=== PATIENT | female | born 1990 | race Caucasian/White ===

== ENCOUNTER → 2018-02-14 16:07 | Outpatient (CLI) | payer MEDICAID, SELFPAY ==
[2018-02-22 11:25] LABS: HPV APTIMA, High Risk Positive (Negative)
[2018-02-22 11:51] LABS: HPV Reflexed? YES, CHARGE PATIENT
== END ==
PROVIDERS: Family Provider Internal Medicine; PCP Internal Medicine; Visit Provider Obstetrics & Gynecology
DX: Z12.4 Encounter for screening for malignant neoplasm of cervix (principal)
CPT/HCPCS: 87624; 88175; G0145

== ENCOUNTER → 2018-03-21 15:56 | Outpatient (CLI) | payer MEDICAID, SELFPAY ==
--- NOTE | 2018-03-21 | CER_PTH ---
PATIENT: XIOMY SOW LOC: [facility] U#:[id number] AGE/SX: 35/F ROOM: RE03/21/[address]: Dr. Cooper May MD : 1990 BED: DIS: SPEC #: [id number] RECD: 03/22/18 13:22 STATUS: JANICE SMALLStephanie #: [id number] SERGEI: 03/21/18 00:[address]: Cooper May DEPT: SURGICAL PATHOLOGY RECD BY: Damaso Bonilla Tissues: A - Uterine cervix, NOS B - Endocervical Procedures: Surgery Specimen Level IV HEADER OPERATION: Colposcopy PRE-OP DIAGNOSIS: LGSIL R87.612 TISSUE SUBMITTED: A ? Cervical biopsy four quad, B - ECC MICROSCOPIC DIAGNOSIS A. Cervix, four-quadrant, biopsy: Minimal changes suspicious for HPV cytopathic effects. Moderate chronic inflammation and squamous metaplasia. See comment. B. ECC: Fragments of benign ecto- and endocervical epithelium, blood and mucous, negative for dysplasia. TIM:josselyn 03/26/18 COMMENT A. Results from immunohistochemistry ([id number]) for surrogate HPV marker (p16) will be reported separately. MICROSCOPIC DESCRIPTION Slides are reviewed. GROSS DESCRIPTION A - Received in fixative is one container labeled with the patient's name and designated cervical biopsy four quadrant. The specimen consists of multiple irregular fragments of light nunez soft tissue that in aggregate measure 1 x 1 x 0.2 cm. The specimen is totally submitted in one cassette. B - Received in fixative is one container labeled with the patient's name and designated ECC. The specimen consists of multiple fragments of hemorrhagic mucoid tissue that in aggregate measure 2 x 2 x 0.2 cm. The specimen is totally submitted in one cassette. / TIM:josselyn 03/22/18 TC:5 CPT: 66942 x2
--- NOTE | 2018-03-21 | IMM_PTH ---
PATIENT: XIOMY SOW LOC: [facility] U#:[id number] AGE/SX: 35/F ROOM: RE03/21/[address]: Dr. Cooper May MD : 1990 BED: DIS: SPEC #: [id number] RECD: 03/26/18 11:23 STATUS: JANICE CANDIDO #: [id number] SERGEI: 03/21/18 00:[address]: Cooper May DEPT: IMMUNOHISTOCHEMISTRY RECD BY: Lisa Ferrer Tissues: A - Uterine cervix, NOS Procedures: p16 (initial) KI-67 (add) PHYSICIAN & INSTITUTION [place] [id number] SPECIMEN INFORMATION: Tissue Source: A ? Cervical biopsy four quad Clinical Info: ALYSIA Specimen Number: [id number] CPT code: 49369, 46471 METHODOLOGY: Deparaffinized sections of prefer/formalin-fixed tissue or PAP/DQ stained slides are incubated with monoclonal/polyclonal antibodies/oligonucleotide probes. Localization is made via biotin free immunoperoxidase method. Appropriate controls are performed and reacted as expected. Results on target cell population are indicated in the following table: RESULTS: ANTIBODY / CLONE RESULT Block A P16 (E6H4) negative Ki-67 (30-9) negative These tests were developed and their performance characteristics determined by [facility]. They may not have been cleared or approved by the U.S. Food and Drug Administration. The FDA has determined that such clearance or approval is not necessary. INTERPRETATION: A. Cervix, four-quad biopsy: Focal minimal changes suspicious for HPV cytopathic effects. SJ:josselyn 03/27/18
== END ==
PROVIDERS: Visit Provider Obstetrics & Gynecology
DX: R87.612 Low grade squamous intraepithelial lesion on cytologic smear of cervix (LGSIL) (principal)
CPT/HCPCS: 88305; 88341; 88342

== ENCOUNTER → 2018-07-17 18:19 | Outpatient (CLI) | payer MEDICAID, SELFPAY | PROVIDERS: Family Provider Internal Medicine; PCP Internal Medicine; Visit Provider Obstetrics & Gynecology | DX: R30.0 Dysuria (principal); R39.15 Urgency of urination | CPT/HCPCS: 87086; 87088 ==

== ENCOUNTER 2018-07-30 20:10 | Emergency (ER) | payer MEDICAID, SELFPAY ==
[2018-07-30 20:11] VITALS: BP 115/69; PULSE 84; RESP 15; TEMP 36.7; O2SAT 98; BMI 33.3
--- NOTE | 2018-07-30 20:21 | EKG12_ITS ---
Test Reason : CP Blood Pressure : / mmHG Vent. Rate : 072 BPM Atrial Rate : 072 BPM P-R Int : 118 ms QRS Dur : 088 ms QT Int : 388 ms P-R-T Axes : 032 061 033 degrees QTc Int : 424 ms Normal sinus rhythm Normal ECG Confirmed by MICHAEL FOWLER MD ([id number]), newspaper editor managing GURVINDER RAMOS ([id number]) on 08/05/2018 3:35:23 PM Referred By: TREY Confirmed By:IMCHAEL FOWLER MD
--- NOTE | 2018-07-30 20:25 | RAD_ITS ---
STUDY: X-RAY CHEST REASON FOR EXAM: Female, 28 years old. Left-sided chest pain. TECHNIQUE: Portable frontal COMPARISON: June 29, 2017 FINDINGS: The lungs are clear and expanded. There is no demonstrated pleural abnormality. Normal size heart. Normal mediastinum and hang. Normal visualized pulmonary arteries. Normal visualized aortic arch and descending thoracic aorta. Normal visualized thoracic spine. Normal visualized ribs, clavicles, and shoulders. There is no demonstrated abnormality of the visualized soft tissue structures of the upper abdomen. RAD/Chest 1 View (Portable) IMPRESSION: No acute cardiopulmonary process. Electronically Signed: Vicenta Rojas MD at 20:36 EDT Tel , Service support ,
[2018-07-30 20:30] VITALS: O2SAT 99
[2018-07-30 20:37] LABS: Absolute Lymphocyte Count 2.53 X10^3/ul (0.83-4.51); Absolute Neutrophil Count 6.3 X10^3/uL (2.0-7.7); Basophil# 0.03 X10^3/uL; Basophil% 0.3 % (0-1); Eosinophil# 0.15 X10^3/uL; Eosinophils% 1.5 % (0-5); Hematocrit 36.9 % (37-47); Lymphocyte # 2.53 X10^3/ul (4.0); Mean Corp Hgb Conc 32.5 g/gl (32-36); Mean Corpuscular Hgb 28.8 pg (27.0-32.0); Mean Corpuscular Volume 88.5 fL (81-99); Monocyte# 0.68 X10^3/uL; Neutrophil # 6.34 X10^3/uL (2.7-7.7); Neutrophil % 65.1 % (47-70); Platelet Count 279 K/mm3 (150-450); RBC Distribution Width CV 13.1 % (11.6-14.6); RBC Distribution Width SD 42.1 fl (35.1-43.9); Red Blood Count 4.17 M/mm3 (4.2-5.4); White Blood Count 9.7 K/mm3 (4.4-11.0)
[2018-07-30 20:40] LABS: POSITIVE COUNT NO; POSITIVE DIFFERENTIAL NO; POSITIVE MORPHOLOGY NO
[2018-07-30] MEDS: Ketorolac 30 MG/ML Syringe IV (20:53)
[2018-07-30 20:57] LABS: Anion Gap 8 (5-15); BUN 14 mg/dL (7-18); BUN/Creat Ratio 17.9 RATIO (10-20); Calcium,Total 9.1 mg/dL (8.5-10.1); Chloride 105 mmol/L (98-107); Creatinine, Serum 0.78 mg/dL (0.55-1.02); EST Glomerular Filtration Rate 93 mL/min (>60); Est Glom Filt Rate - Afr Amer 112 mL/min (>60); Estimated Creatinine Clearance 84.17 ml/min; Glucose 85 mg/dL (74-106); Potassium 3.6 mmol/L (3.5-5.1); Sodium Level 140 mmol/L (136-145)
[2018-07-30 21:20] VITALS: BP 111/69; PULSE 75; RESP 18; O2SAT 98
--- NOTE | 2018-07-30 21:55 | ED.VISSUMM ---
- ER Visit Summary Date of Service: 07/30/18 Chief Complaint: Back and chest pain History of Present Illness: The patient is a 28 F presents with back and chest pain started 2 hours after picking up her son. States mild symptoms progressed. Pain with palpation and deep breaths. No cough. No numbness in the arms. No recent travel, surgery, or immobilizations. No history of PE or DVT. History of gestational diabetes. No tobacco history. She is on iron for anemia. No further complaints. Physical Examination: General: Alert and oriented ?3, no acute distress HEENT: Normocephalic, atraumatic. Moist mucosa membranes Neck: supple, nontender. Cardiovascular: Regular rate and rhythm, no murmurs. Reproducible chest wall tenderness anterior and parathoracic. Respiratory: Normal breath sounds, symmetric, no distress Abdomen: Soft, nontender, nondistended Extremities: Nontender, no edema, pulses intact ?4 Neuro: no focal neurological deficits. Test Results: EKG sinus rate of 72, no ST or T wave changes. Troponin negative. CBC BMP normal. Chest x-ray negative. Emergency Department Course and Treatment: Patient exam concerns for muscle skeletal costochondritis. Nursing protocol obtain EKG and labs which all are normal. She is given Toradol IV. Reevaluation improving symptoms. Should continue on Motrin for symptoms. She will follow-up with PCP. All questions answered. Treatment Plan: [] Disposition: Discharge Impression: 1. Costochondritis 2. Thoracic muscle strain This note was generated with [employer] dictation software. It may contain incorrect words, spelling, and punctuation that were not noted in review of the chart prior to signing ED Disposition - Plan for ED Patient: Disposition: Home or Assisted Living Chief Complaint: Chest Pain Diagnosis: Costochondritis, Strain of muscle and tendon of back wall of thorax, initial encounter Instructions: ED Chest Pain Costochondritis Prescriptions: Ibuprofen 600 mg PO 4X/DAY PRN #20 tablet PRN Reason: Pain Referrals: Rodney Navarro Jr., MD [Primary Care Provider] - 3-5 Days
[2018-07-30 22:03] VITALS: BP 116/66; PULSE 79; RESP 16; O2SAT 98
== END 2018-07-30 22:04 | disposition home or self-care (01) ==
PROVIDERS: Emergency Provider Emergency Medicine; Family Provider Internal Medicine; PCP Internal Medicine
DX: M94.0 Chondrocostal junction syndrome [Tietze] (principal); S29.012A Strain of muscle and tendon of back wall of thorax, initial encounter; X50.9XXA Other and unspecified overexertion or strenuous movements or postures, initial encounter; Y93.9 Activity, unspecified; Y92.89 Other specified places as the place of occurrence of the external cause; Y99.9 Unspecified external cause status; Z86.32 Personal history of gestational diabetes
CPT/HCPCS: 71045; 80048; 84484; 85025; 93005; 99285; A4216

== ENCOUNTER → 2018-08-02 16:38 | Outpatient (CLI) | payer MEDICAID, SELFPAY | PROVIDERS: Visit Provider Physician Assistant Surgical | DX: J02.9 Acute pharyngitis, unspecified (principal) | CPT/HCPCS: 87081 ==

== ENCOUNTER 2018-09-27 16:20 | Emergency (ER) | payer MEDICAID, SELFPAY ==
[2018-09-27 16:20] VITALS: BP 133/74; PULSE 77; RESP 16; TEMP 36.5; O2SAT 98; BMI 32.7
[2018-09-27 16:41] VITALS: O2SAT 98
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
--- OUTSIDE RECORDS SUMMARY | 2018-11-22 16:23 | XMS RPT_ITS ---
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 Result Comment: TROPONIN-I EXPECTED VALUES <0.045 Negative 0.045 - 0.590 Consistent with Cardiac Damage > OR = 0.600 Critical Value Not every elevated troponin is indicative of AK. These values should be used with clinical judgement in examining the patient's clinical picture for diagnosis. To establish a diagnosis of AK versus myocardial injury, there must be a demonstrated rise and/or fall in the troponin values, in addition to ischemic symptoms, EKG changes, new regional wall motion abnormality, and/or angiographical evidence. PLEASE NOTE: REFERENCE RANGES EDITED 18 Performed By: #### L500.2500, L501.4010 #### [facility] [place] [facility] [address] [place], [address] CHEST 1 VIEW Observed: 07/30/2018 Status: F Source: [place] (PORTABLE) 8:22 PM [facility] Imaging Services [address] [place] [address] Chest 1 View (Portable) MR#: [id number] Acct: [id number] Name: XIOMY SOW Rep #: [id number] : 1990 F 28 From: Vicenta Rojas MD PCP: Belia Rodriguez Jr., MD Status: PRE ER Study: Chest 1 View (Portable) Date of Exam: 07/30/18 Exam# [id number] Ordering Dr: Emanuel Cassidy DO STUDY: X-RAY CHEST REASON FOR EXAM: Female, 28 years old. Left-sided chest pain. TECHNIQUE: Portable frontal COMPARISON: June 29, 2017 FINDINGS: The lungs are clear and expanded. There is no demonstrated pleural abnormality. Normal size heart. Normal mediastinum and hang. Normal visualized pulmonary arteries. Normal visualized aortic arch and descending thoracic aorta. Normal visualized thoracic spine. Normal visualized ribs, clavicles, and shoulders. There is no demonstrated abnormality of the visualized soft tissue structures of the upper abdomen. RAD/Chest 1 View (Portable) IMPRESSION: No acute cardiopulmonary process. Electronically Signed: Vicenta Rojas MD at 20:36 EDT Tel , Service support , CC: Belia Rodriguez Jr., MD; Emanuel Cassidy Manager Epic: Signed URGENT CARE VISIT Observed: 07/23/2018 Status: F Source: [place] REPORT 6:04 PM [facility] [address] [place] [address] [address] [place] [address] OFFICE VISIT Date of Service: 07/23/18 MR#: [id number] Acct: [id number] Name: XIOMY SOW Rep #: [id number] : 1990 Provider: Sterling TRAORE Age/Sex: 28/F Location: [facility] Status: Signed Intake Vital Signs07/23/18 Height 5 ft 2 in 07/23/18 Weight: 176 lb 07/23/18 Body Mass Index (BMI) 32.1 07/23/18 Blood Pressure 114/70 Intake Visit Reasons: STREP THROAT Chief Complaint: sore throat Trestleman Required: No Accompanied by: self Is patient in pain?: No Allergies No Known Allergies Allergy (Verified 08/24/17 19:24) Medications Ferrous Sulfate [Iron] 325 mg PO DAILY 02/01/17 [History Confirmed 07/23/18] amoxicillin 500 mg capsule 500 mg PO BID 10 Days #20 cap 07/23/18 [Rx Confirmed 07/23/18] nitrofurantoin monohydrate/macrocrystals 100 mg capsule PO 7 Days #14 cap 07/23/18 [History Confirmed 07/23/18] [facility] Medical History Arthritis (Acute) Shortness of breath (Acute) neck/back pain (Acute) Surgical History History of (Acute) History of dilatation and curettage (Acute) History of tubal ligation (Acute) Social History Smoking Status: Former smoker alcohol intake: never HPI HPI Chief Complaint: sore throat Details: XIOMY SOW, is a 28 F who presents to the office today for complaint of sore throat which started today. Patient states that she has had increasing sore throat and nasal drainage during the day today and is concerned for possible strep as multiple coworkers have been diagnosed with strep. She denies any fever, chills, sweats. No nausea, vomiting, diarrhea. No other associated symptoms or alleviating/aggravating factors. ROS Const Constitutional: No fever(s), headache(s), anorexia, chills or abnormal sleep pattern ENT ENT: Positive for post nasal drip, sore throat, nasal congestion and nasal discharge; no headache(s) or ear pain Resp Respiratory: No shortness of breath Cardio Cardiology: No irregular heart rhythm or palpitations Gastro GI: No nausea/dyspepsia Neuro Neurology: No headache(s) or behavioral changes Psych Psychiatric: No abnormal sleep pattern, No behavioral changes Exam Const General: cooperative, healthy appearing [facility] Head: normal to inspection Ears: hearing grossly normal bilaterally, TM's normal bilaterally, EAC's normal Nose: external nose normal, nasal discharge clear Mouth: oral mucosae normal Throat: abnormal tonsil bilaterally Resp Effort AND Inspection: normal respiratory effort Auscultation: Bilateral: Clear to Auscultation Cardio Palpation: normal PMI Rate: regular rate Rhythm: regular rhythm Neuro General: CN's II-XI intact bilaterally, alert Psych Appearance: grossly normal Mental Status: mental status grossly normal Results BMSRAPIDSTREPA Office Rapid Strep A Positive Last Edit by Clari Cruz on 07/23/18 18:01 Assessment AND Plan Problems 1. Acute streptococcal pharyngitis J02.0 Status Acute Plan Amoxicillin as prescribed today. Encouraged to get plenty of rest, drink lots of clear liquids, and use Tylenol or Ibuprofen (unless contraindicated) for fever and comfort. Patient also educated on other symptomatic management techniques. To be seen in 7-10 days if no improvement; sooner if worsening of symptoms. Patient advised of potential red flags and when appropriate report to the ED. Patient verbalized understanding of all the above. Orders Orders: Medications New: Coding Level of Care Code Off vis,new,level 3 Diagnoses Acute streptococcal pharyngitis J02.0 Pharyngitis/tonsillitis etiology: streptococcus 07/23/18 1804 <Electronically signed by Sterling TRAORE> Date Sterling TRAORE Cosigner Signature: Date (if applicable) CC: Observed: 07/17/2018 Status: F Source: [place] CULTURE, URINE 3:40 PM [facility] Urine Culture ORGANISM 1: Mixed Gram Positive Organisms [place] Count 80,000-100,000 MIX CULTURE Mixed contaminants. Submit a new specimen if indicated. Performed By: #### M100.0650 #### [facility] [place] [facility] [address] [place], [address] Observed: 05/21/2018 Status: F Source: [place] URINE CULTURE 8:05 AM [facility] REPOSITORY Sp. Request/Comment: - Specimen received in preservative Culture Result - >=100,000 CFU/ml Staphylococcus saprophyticus --> ABNORMAL ALERT Routine testing of urine isolates of Staphylococcus saprophyticus is not recommended by the National Committee for Clinical Laboratory Standards for acute, uncomplicated urinary tract infections. This organism responds to antimicrobial drug concentrations achieved in urine of commonly used antibiotics (i.e. nitrofu rantoin, trimethoprim with and without sulfamethoxazole, or a fluroquinolone). Performed By: #### URCUL #### [facility] [address] [place], [place] [address] PROGRESS Observed: 05/20/2018 Status: COMPLETED Source: [place] 7:57 PM [facility] REPOSITORY HNO ID: [id number] Author: Byron Mccrary) Felicitas Service: (none) Author Type: Physician Dot Etcher Apprentice Type: Progress Notes Filed: 05/20/2018 8:23 PM Note Text: Subjective HPI Pt presents with dysuria, frequency and hematuria for 2 days. She is having lower abdominal cramping as well. No back pain. LMP May 02 and normal for her. She has had a tubal ligation. Review of Systems Constitutional: Negative for chills and fever. Genitourinary: Positive for dysuria, frequency, hematuria and urgency. All other systems reviewed and are negative. No past medical history on file. Current Outpatient Prescriptions: ferrous sulfate (IRON ORAL) Take by mouth. Disp: Rfl: No current facility-administered medications for this visit. No past surgical history on file. No family history on file. Social History Substance Use Topics - Smoking status: Never Smoker - Smokeless tobacco: Never Used - Alcohol use Not on file BP 130/82 Pulse 78 Temp 37.1 ?C (98.7 ?F) (Tympanic) Resp 16 Wt 81.6 kg (180 lb) LMP 05/02/2018 Objective Physical Exam Constitutional: She is oriented to person, place, and time and well-developed, well-nourished, and in no distress. HENT: Head: Normocephalic and atraumatic. Cardiovascular: Normal rate, regular rhythm and normal heart sounds. Pulmonary/Chest: Effort normal and breath sounds normal. Abdominal: Soft. Bowel sounds are normal. She exhibits no distension. There is no tenderness. There is no rebound. Musculoskeletal: No cva tenderness Neurological: She is alert and oriented to person, place, and time. Skin: Skin is warm and dry. Psychiatric: Affect and judgment normal. Nursing note and vitals reviewed. ASSESSMENT/PLAN: 1. Burning with urination - ICD9: 788.1, ICD10: R30.0 acute - UA positive for israel esterase, hematuria and proteinuria - Send urine for culture - Begin treatment with Macrobid 100 mg BID for 7 days - UA DIP B/O - URINE CULTURE - IRON ORAL - NITROFURANTOIN MONOHYDRATE AND MACROCRYSTAL 100 MG ORAL CAP - PHENAZOPYRIDINE 200 MG TABLET Byron López PA-C CNOV Observed: 05/20/2018 Status: COMPLETED Source: [place] 7:45 PM [facility] REPOSITORY Office Visit (WSTR) JUANJOSEXIOMY Clem ([id number]) 1990 F Date Time Provider Department 05/20/18 7:45 PM BYRON LÓPEZ (EUGENIE) [facility] During your visit today, we recorded the following information about you: Temperature Pulse Respiration Blood pressure 98.7 degrees 78/minute 16/minute 130/82 Weight Last Period 81.6 kg 05/02/18 Byron López PA-C 05/20/2018 8:23 PM Signed Subjective HPI Pt presents with dysuria, frequency and hematuria for 2 days. She is having lower abdominal cramping as well. No back pain. LMP May 02 and normal for her. She has had a tubal ligation. Review of Systems Constitutional: Negative for chills and fever. Genitourinary: Positive for dysuria, frequency, hematuria and urgency. All other systems reviewed and are negative. No past medical history on file. Current Outpatient Prescriptions: ferrous sulfate (IRON ORAL) Take by mouth. Disp: Rfl: No current facility-administered medications for this visit. No past surgical history on file. No family history on file. Social History Substance Use Topics - Smoking status: Never Smoker - Smokeless tobacco: Never Used - Alcohol use Not on file BP 130/82 Pulse 78 Temp 37.1 ?C (98.7 ?F) (Tympanic) Resp 16 Wt 81.6 kg (180 lb) LMP 05/02/2018 Objective Physical Exam Constitutional: She is oriented to person, place, and time and well-developed, well-nourished, and in no distress. HENT: Head: Normocephalic and atraumatic. Cardiovascular: Normal rate, regular rhythm and normal heart sounds. Pulmonary/Chest: Effort normal and breath sounds normal. Abdominal: Soft. Bowel sounds are normal. She exhibits no distension. There is no tenderness. There is no rebound. Musculoskeletal: No cva tenderness Neurological: She is alert and oriented to person, place, and time. Skin: Skin is warm and dry. Psychiatric: Affect and judgment normal. Nursing note and vitals reviewed. ASSESSMENT/PLAN: 1. Burning with urination - ICD9: 788.1, ICD10: R30.0 acute - UA positive for israel esterase, hematuria and proteinuria - Send urine for culture - Begin treatment with Macrobid 100 mg BID for 7 days - UA DIP B/O - URINE CULTURE - IRON ORAL - NITROFURANTOIN MONOHYDRATE AND MACROCRYSTAL 100 MG ORAL CAP - PHENAZOPYRIDINE 200 MG TABLET Byron López PA-C Referring Provider: SELF [200] Allergies As of Date: 05/20/2018 Noted Allergy Reaction PREDNISONE 05/20/2018 2 - Rash Comments: blisters in mouth Date Reviewed: Never Reviewed Reason for Visit: Urinary Frequency [1086] Cmt: burning, cramping with blood x 2 days Primary Visit Diagnosis:Burning with urination [R30.0] Order(s):UA DIP B/O [6017100] Order #: [id number] URINE CULTURE [SQURCUL] Order #: [id number] nitrofurantoin monohydrate and macrocrystal (MACROBID) 100 mg capsuleTake 1 capsule by mouth twice daily with meals for 7 days.Disp: 14 capsuleRfl: 0 phenazopyridine (PYRIDIUM) 200 mg tabletTake 1 tablet by mouth three times daily as needed.Disp: 6 tabletRfl: 0 Prescriptions as of 05/20/2018 Sig: IRON ORAL Take by mouth. NITROFURANTOIN MONOHYDRATE AND * Take 1 capsule by mouth twice* PHENAZOPYRIDINE 200 MG TABLET Take 1 tablet by mouth three * Problem List As Of Date: 05/20/2018 (None) Prescriptions ordered this encounter Disp Refills Start End NITROFURANTOIN MONOHYDRATE AND MACROCR* 14 c* 0 05/20/2018 05/27/2018 Route: ORAL Sig: Take 1 capsule by mouth twice daily with meals for 7 days. PHENAZOPYRIDINE 200 MG TABLET 6 ta* 0 05/20/2018 Route: ORAL Sig: Take 1 tablet by mouth three times daily as needed. Encounter Status:Closed by BYRON LÓPEZ PA-C on 05/20/18 CERVICAL Observed: 03/21/2018 Status: F Source: [place] 12:00 AM [facility] [place] Patient: XIOMY SOW : 1990 () Acct Num: [id number] Phys: Yadira GEORGE,[facility] Unit Num: [id number] Loc: LABSPEC Specimen: [id number] Received: 03/22/18 - 1322 Spec Type: CERV TISSUES TISSUES: A. Uterine cervix, NOS B. Endocervical COMMENT A. Results from immunohistochemistry (XS60-144) for surrogate HPV marker (p16) will be reported separately. GROSS DESCRIPTION A - Received in fixative is one container labeled with the patient's name and designated cervical biopsy four quadrant. The specimen consists of multiple irregular fragments of light nunez soft tissue that in aggregate measure 1 x 1 x 0.2 cm. The specimen is totally submitted in one cassette. B - Received in fixative is one container labeled with the patient's name and designated ECC. The specimen consists of multiple fragments of hemorrhagic mucoid tissue that in aggregate measure 2 x 2 x 0.2 cm. The specimen is totally submitted in one cassette. / SJ:josselyn 03/22/18 TC:5 CPT: 62472 x2 HEADER OPERATION: Colposcopy PRE-OP DIAGNOSIS: LGSIL R87.612 TISSUE SUBMITTED: A Cervical biopsy four quad, B - ECC MICROSCOPIC DESCRIPTION Slides are reviewed. MICROSCOPIC DIAGNOSIS A. Cervix, four-quadrant, biopsy: Minimal changes suspicious for HPV cytopathic effects. Moderate chronic inflammation and squamous metaplasia. See comment. B. ECC: Fragments of benign ecto- and endocervical epithelium, blood and mucous, negative for dysplasia. SJ:josselyn 03/26/18 Signed Duglas Weiss 03/27/18 <signature on file> Performed By: #### PCER #### [facility] [place], [address] IMMUNOHISTOCHEMISTRY Observed: 03/21/2018 Status: F Source: [place] 12:00 AM [facility] [place] Patient: XIOMY SOW : 1990 (/) Acct Num: [id number] [facility] Num: [id number] Loc: LABSPEC Specimen: [id number] Received: 03/26/181122 Spec Type: IMMUNO TISSUES TISSUES: A. Uterine cervix, NOS SPECIMEN INFORMATION: Tissue Source: A Cervical biopsy four quad Clinical Info: LGSIL Specimen Number: [id number] CPT code: 81513, 09575 METHODOLOGY: Deparaffinized sections of prefer/formalin-fixed tissue or PAP/DQ stained slides are incubated with monoclonal/polyclonal antibodies/oligonucleotide probes. Localization is made via biotin free immunoperoxidase method. Appropriate controls are performed and reacted as expected. Results on target cell population are indicated in the following table: RESULTS: ANTIBODY / CLONE RESULT Block A P16 (E6H4) negative Ki-67 (30-9) negative These tests were developed and their performance characteristics determined by [facility] [place] [facility]. They may not have been cleared or approved by the U.S. Food and Drug Administration. The FDA has determined that such clearance or approval is not necessary. INTERPRETATION: A. Cervix, four-quad biopsy: Focal minimal changes suspicious for HPV cytopathic effects. SJ:josselyn 03/27/18 PHYSICIAN AND INSTITUTION [place] [phone] Signed Duglas Weiss 03/27/18 <signature on file> Performed By: #### PIMM #### [facility] [place] [facility] [address] [place] [address]. [place], [place], [id number] PAP IG W/REFLEX HR Collected: 02/14/2018 Status: F Source: [place] HPV APTIMA 3:10 PM [facility] Order Comment: CYTOLOGY INFORMATION: - CLINICAL INFORMATION: - DATE LMP/MENOPAUSE: LMP 02/08/18 - COLLECTION VIAL: Thin Prep Vial - NOTEMAN SOURCE: CERVICAL/ENDOCERVICAL - COLLECTION TECHNIQUE: BRUSH/SPATULA Specimen Comment: [id number] Specimen Comment: No. of containers..01 ThinPrep Vial TYPE CODE TESTS RESULT OUT OF REFERENCE UNITS RANGE LAB L7400.0800 . High DIAGN Comment Result Comment: EPITHELIAL CELL ABNORMALITY. LOW-GRADE SQUAMOUS INTRAEPITHELIAL LESION (LGSIL); MILD DYSPLASIA IS PRESENT. LAB L7400.0900 . Normal ADEQ Comment Result Comment: Satisfactory for evaluation. Endocervical and/or squamous metaplastic cells (endocervical component) are present. LAB L7400.1400 . Normal PERFORM Comment Result Comment: Anatoly Desir, Automatic Transmission Mechanic (ASCP) LAB L7400.1700 . Normal SIGN Comment Result Comment: Kelle Koo MD, Pathologist LAB L7400.1720 . Normal Path prov. Comment ICD9 Result Comment: R87.612 LAB L7400.2575 . Normal TEST METHOD Comment Result Comment: This liquid based ThinPrep(R) pap test was screened with the use of an image guided system. LAB L7400.2600 . Normal . COMM LAB L7400.2700 . Normal PAPSMR Comment Result Comment: The Pap smear is a screening test designed to aid in the detection of premalignant and malignant conditions of the uterine cervix. It is not a diagnostic procedure and should not be used as the sole means of detecting cervical cancer. Both false-positive and false-negative reports do occur. LAB L7400.2760 Negative High HPV APTIMA, HR Positive Result Comment: This test detects fourteen high-risk HPV types (16/18/31/33/35/39/45/ 51/52/56/58/59/66/68) without differentiation. Performed at: [address] [place] [id number] Biology Manager: Kelle Koo MD, Phone: [phone] Performed at: [address] [id number] Biology Manager: Brunilda Christianson MD, Phone: [phone] Performed at: [address] [id number] Biology Manager: Brunilda Christianson MD, Phone: [phone] LAB L7400.5025 . Normal HPV RFLX Comment Result Comment: See below for HPV testing results. Performed By: #### L7400.0357 #### [facility] (refer to report for specific site) refer to report for address and phone number XR CHEST 2 VIEWS Observed: 12/12/2017 Status: F Source: [facility] 4:17 PM [facility] REPOSITORY ORIGINAL XR CHEST 2 VIEWS CLINICAL STATEMENT: CHEST TIGHTNESS COMPARISON: None FINDINGS:The cardiac contours are normal. There is no acute infiltrate or consolidation. No pleural effusion or pneumothorax is identified. The osseous structures are intact IMPRESSION:Normal exam Interpreted By: Keira Mensah MD Preliminary Report By: Keira Mensah MD Electronically Signed By: Keira Mensah MD Dictated Date: 12/13/2017 8:13:25 AM Prelim Date: 12/13/2017 8:13:25 AM Sign Date: 12/13/2017 8:13:39 AM ALLERGIES ALLERGIES DATE TYPE / CODE NAME / CODE REACTION SEVERITY SOURCE 10/16/2018 Drug No Known Unknown [facility] Allergy/4160 Allergies/F00 [facility] 87957(SNOMED [id number](RXNOR Repository CT) M) ENCOUNTERS ENCOUNTERS ADMIT/DISCHARGE ACCOUNT NUMBER ADMITTING ENCOUNTER LOCATION SOURCE CLASS 10/16/2018/10/16/20 [id number] Rani, Ambulatory [facility] [address] [place] [address] ding:[id number] Repository : WD874Wyy: 1 10/01/2018/10/01/20 [id number] Ambulatory BMSBuilding: [place] 18 BMS.[facility] Repository 09/27/2018/09/27/20 [id number] Emergency [address] ding:ED Repository 08/28/2018/08/28/20 [id number] Ambulatory [address] ding:[facility] Repository 08/02/2018 [id number] Ambulatory [facility] ding:[facility]SPEC Repository 08/02/2018/08/02/20 [id number] [facility]ulatory BMS[facility] [place] [facility] 07/30/2018/07/30/20 [id number] Emergency [address] ding:ED Repository 07/23/2018/07/23/20 [id number] Ambulatory BMSBuilding: [place] [facility] 07/17/2018 [id number] Ambulatory [facility] ding:LABSPEC Repository 05/20/2018/05/21/20 [id number] Ambulatory [address] Repository 03/21/2018 [id number] Ambulatory [facility] ding:LABSPEC Repository 02/14/2018 [id number] Ambulatory [facility] ding:LABSPEC Repository 12/12/2017/12/12/19 [id number] Ambulatory [address] ding:[facility] Repository 10/23/2017/10/23/20 [id number] Emergency BBuilding:ER Rosalie [address] [place] [address] Repository PAYERS PAYERS ENCOUNTER GUARANTOR PAYER SUBSCRIBER SOURCE 10/16/2018 XIOMY [id number] Primary XIOMY R [place] Insurance:DUNCAN SWOB: [facility] [id number] [address]Ucq: (330) PLANPolicy Number: Repository [phone] () [id number] Date:5542-05-66MX [address] [place] [id number]: 10/16/2018 Secondary NOT GIVENUNK [place] Insurance:SELF PAY [facility] Number: Effective Repository Date:2018-10-15 10/01/2018 XIOMY [id number] Primary XIOMY R [place] Insurance:DUNCAN CUMMINGS: [facility] [id number] Hospital [address]Wet: (330) PLANPolicy Number: Repository [phone] () [id number] Date:2411-79-73LW [address] [place] [address]PX: 10/01/2018 Secondary NOT GIVENUNK [place] Insurance:SELF PAY [facility] Number: Effective Repository Date:2018-09-25 09/27/2018 XIOMY [id number] Primary XIOMY R [place] Insurance:[facility] [id number] Hospital [address]Sbr: (936) PLANPolicy Number: Repository [phone] () [id number] Date:6399-95-10[address] GUNN [address]EF: 09/27/2018 Secondary NOT GIVENUNK [place] Insurance:SELF PAY [facility] Number: Effective Repository Date:2018-09-27 08/28/2018 XIOMY Nj EMILIANOB: Primary XIOMY R [facility] W Insurance:DUNCAN CUMMINGSKamla: [facility] PLANPolicy [id number] Repository [place] Number: Cyrus HERNANDEZ [id number] [place], [place] [email or web address]: Date:2018-08-28 17475Qfj: [phone]) [id number] 018 (HP)Tel: ([phone]) Name:XPO Box () (WP) 620[facility] Centertejinder JAYDEN [phone] (WP) [address]WC: 08/02/2018 XIOMY R [id number] Primary XIOMYCHEVY Curiel [place] Insurance:DUNCAN CUMMINGSB: [facility] [id number] Hospital [address]11[address]Kha: (330) PLANPolicy Number: Repository [phone] () [id number] Date:3982-22-30[address] A JAYDEN [address]FA: 08/02/2018 Secondary NOT GIVENUNK [place] Insurance:SELF PAY [facility] Number: Effective Repository Date:2018-08-02 08/02/2018 XIOMY Nj [id number] Primary XIOMY R [place] Insurance:DUNCAN CUMMINGSB: [facility] [id number] Hospital [address]Xaq: (330) PLANPolicy Number: Repository [phone] () [id number] Date:9262-30-77EO BOX [facility] [place] [address]AS: 08/02/2018 Secondary NOT GIVENUNK [place] Insurance:SELF PAY [facility] Number: Effective Repository Date:2018-08-02 07/30/2018 XIOMY Nj [id number] [place] XIOMY R [place] [facility] Insurance:[place] JUANJOSEDOB: [facility] [id number] Hospital [address]Ktp: (330) PLANPolicy Number: Repository [phone] [id number] Date:3798-21-93NV BOX [facility] [place] [address]XG: 07/30/2018 Secondary NOT GIVENUNK [place] Insurance:SELF PAY [facility] Hospital Number: Effective Repository Date:2018-07-30 07/23/2018 XIOMY [id number] Primary XIOMY DAVISDOB: [place] Insurance:TidalEY [id number] [id number]: (330) PLANPolicy Number: Repository [phone] () [id number] Date:0504-94-99[address] [place], [place] [address] [address]HB: 07/23/2018 Secondary NOT GIVENUNK [place] Insurance:SELF PAY [facility] Number: Effective Repository Date:2018-07-23 07/17/2018 XIOMY [id number] Primary XIOMY DAVISDOB: Moisés [facility] Insurance:[place] [id number] [facility] [address]Yuo: (330) PLANPolicy Number: Repository [phone] [id number] Date:0460-78-47RY BOX [facility] [place]TE[place]INDER [place] [address]XJ: 07/17/2018 Secondary NOT GIVENUNK [place] Insurance:SELF PAY [facility] Hospital Number: Effective Repository Date:2018-07-17 03/21/2018 ALONZO JAMARI Primary XIOMY DAVISDOB: [place] [id number] JC Insurance:[place] [id number] [id number]: (330) PLANPolicy Number: Repository 317 (HP) [id number] Date:4723-73-14DB [address] GUNN [address]ON: 03/21/2018 Secondary NOT GIVENUNK [place] Insurance:SELF PAY [facility] Hospital Number: Effective Repository Date:2018-03-21 02/14/2018 ALONZO BULL Primary XIOMYCHEVY SOWDOB: [place] [id number] [place] Insurance:[place] [id number] [address]Ydr: (330) PLANPolicy Number: Repository () [id number] Date:0917-49-60IM [address] [place], [place] [address] [address]KD: 02/14/2018 Secondary NOT GIVENUNK [place] Insurance:SELF PAY [facility] Hospital Number: Effective Repository Date:2018-02-14 12/12/2017 XIOMY CUMMINGSB: Primary [facility] W Insurance:BRANDYMICHAELWest CUMMINGSB: [facility] DAVID [employer] [facility] [id number] Repository [place] Number: Cyrus HERNANDEZ [id number] [place] [email or web address]ITALel: Date:2017-12-12 [address]Vtp: ([phone]) [phone] ()Tel: ([phone]) Name:X[address] () (WP) [address] [phone] (QL) [address]WP: 10/23/2017 XIOMY CUMMINGSB: Primary [facility] W Insurance:DUNCAN CUMMINGSB: [facility] [employer] [facility] [id number] Repository [place] Number: Cyrus HERNANDEZ [id number] GEEWest MARLON [email or web address]: Date:2017-10-23 560[address]Ahs: (330) [id number] ()Tel: ([phone]) Name:RYLIE Lopez () (WP) [address]JAYDEN Schulz [phone] (UQ) [address]YF:
== END 2018-09-27 18:00 | disposition home or self-care (01) ==
LOC: ED 16:36
PROVIDERS: Emergency Provider Emergency Medicine; Family Provider Internal Medicine; PCP Internal Medicine
DX: S09.90XA Unspecified injury of head, initial encounter (principal); S16.1XXA Strain of muscle, fascia and tendon at neck level, initial encounter; Y92.410 Unspecified street and highway as the place of occurrence of the external cause; V89.2XXA Person injured in unspecified motor-vehicle accident, traffic, initial encounter; Y93.9 Activity, unspecified; Y99.9 Unspecified external cause status
CPT/HCPCS: 72040; 99282

== ENCOUNTER 2018-10-15 19:59 | Observation (INO) | payer MEDICAID, SELFPAY ==
[2018-10-01 15:37] VITALS: BMI 31.4
[2018-10-15 20:00] VITALS: BP 121/70; PULSE 92; RESP 17; TEMP 36.4; O2SAT 98; BMI 31.1
[2018-10-15 21:11] LABS: Red Blood Cells-Urine 0 SEEN /hpf (0-5)
[2018-10-15 21:17] LABS: Internal QC Validated? YES +Cl - CLEAR BKGD; Pregnancy, Urine Negative Negative
[2018-10-15 21:19] LABS: Color, Urine Yellow (Yellow); Glucose, Dipstick Normal (Normal); Ketone-Dipstick Negative (Negative); Leukocyte Esterase-Dipstick 100 /ul (Negative); Nitrite-Dipstick Negative (Negative); Occult Blood-Urine Negative /ul (Negative); Protein-Dipstick Negative (Negative); Specific Gravity, Urine 1.025 (1.002-1.030); Urine Bilirubin Dipstick Negative (Negative); Urine Clarity Sl. Cloudy (Clear); Urine Urobilinogen Normal (Normal)
[2018-10-15 21:23] LABS: Squamous Epithelial Cells - UA 5-10 SEEN /hpf (5-10)
[2018-10-15 21:24] LABS: Bacteria RARE /hpf (None Seen); Mucous, Urine RARE /hpf (<or=2+); White Blood Cells 0-5 SEEN /hpf (0-5)
--- NOTE | 2018-10-15 21:48 | US_ITS ---
STUDY: ABDOMINAL ULTRASOUND - RIGHT UPPER QUADRANT REASON FOR VISIT: Female, 28 years old. Right upper quadrant pain and nausea TECHNIQUE: Ultrasound evaluation of the right upper quadrant was performed with real-time and static ortega-scale imaging. TECHNICAL QUALITY: Adequate. COMPARISON: None. FINDINGS: Liver: The liver measures 15.9 cm. There is increased echogenicity consistent with fatty infiltration. The bile ducts are within normal limits. There is hepatic color flow. The direction of portal flow is hepatopetal. There is no demonstrated mass lesion. Gallbladder: Normal distended gallbladder. The gallbladder wall measures 3 mm. There is a negative sonographic Enrique's sign. There is no pericholecystic fluid. Multiple gallstones filling the gallbladder. There is significant shadowing. Common Bile Duct (C.B.D.): The common bile duct measures 4.4 mm. Pancreas: Normal size of the head, body of the pancreas. There is normal echogenicity of the pancreas. There is no demonstrated pancreatic mass or cyst. The tail of pancreas is not well-visualized. Right Kidney: Normal size of the right kidney. The right kidney measures 11.4 x 4.6 x 3.5 cm. Normal renal cortex. The right cortex measures 1.2 cm. There is no demonstrated renal mass or cyst. There is no right hydronephrosis. US/Gallbladder IMPRESSION: Multiple stones filling the gallbladder with mild wall thickening in upper limits of normal common duct distention for patient's age with a positive sonographic Enrique sign raises high concern for ultrasound findings consistent with acute cholecystitis. Electronically Signed: Lala Pelaez MD at 23:08 EST Tel , Service support ,
[2018-10-15 22:03] VITALS: RESP 16
[2018-10-15] MEDS: 0.9% Normal Saline 1,000 ML 150 ML IV (22:04)
[2018-10-15] MEDS: Ondansetron 4 MG/2 ML Vial IV (22:04)
[2018-10-15] MEDS: Ketorolac 30 MG/ML Syringe IV (22:06)
[2018-10-15 22:30] LABS: Absolute Neutrophil Count 6.6 X10^3/uL (2.0-7.7); Basophil# 0.03 X10^3/uL; Basophil% 0.3 % (0-1); Eosinophil# 0.18 X10^3/uL; Eosinophils% 1.8 % (0-5); Hematocrit 38.6 % (37-47); Hemoglobin 12.7 g/dl (12.0-15.0); Lymphocyte % 24.8 % (19-41); Mean Corp Hgb Conc 32.9 g/gl (32-36); Mean Corpuscular Hgb 28.8 pg (27.0-32.0); Mean Corpuscular Volume 87.5 fL (81-99); Mean Platelet Vol. 9.9 fl (6.2-12.0); Monocyte# 0.74 X10^3/uL; Monocyte% 7.3 % (0-10); Neutrophil # 6.63 X10^3/uL (2.7-7.7); Neutrophil % 65.7 % (47-70); Platelet Count 309 K/mm3 (150-450); RBC Distribution Width CV 12.8 % (11.6-14.6); RBC Distribution Width SD 41.5 fl (35.1-43.9); Red Blood Count 4.41 M/mm3 (4.2-5.4); White Blood Count 10.1 K/mm3 (4.4-11.0)
[2018-10-15 22:32] LABS: POSITIVE COUNT NO; POSITIVE DIFFERENTIAL NO; POSITIVE MORPHOLOGY NO
[2018-10-15 22:34] LABS: AST(SGOT) 11 U/L (15-37); Alanine Aminotransfer ALT/SGPT 18 U/L (13-56); Albumin, Serum 3.9 g/dL (3.2-5.0); Alkaline Phosphatase 69 U/L (45-117); Anion Gap 11 (5-15); BUN 17 mg/dL (7-18); BUN/Creat Ratio 23.8 RATIO (10-20); Bilirubin, Direct 0.09 mg/dL (0.00-0.30); Calcium,Total 9.3 mg/dL (8.5-10.1); Chloride 105 mmol/L (98-107); Creatinine, Serum 0.72 mg/dL (0.55-1.02); EST Glomerular Filtration Rate 102 mL/min (>60); Est Glom Filt Rate - Afr Amer 124 mL/min (>60); Estimated Creatinine Clearance 91.18 ml/min; Globulin 4.2 g/dL (2.2-4.2); Glucose 77 mg/dL (74-106); Lipase 131 U/L (73-393); Potassium 3.9 mmol/L (3.5-5.1); Protein, Total 8.1 g/dL (6.4-8.2); Sodium Level 141 mmol/L (136-145)
--- NOTE | 2018-10-15 22:55 | ED.VISSUMM ---
- ER Visit Summary Date of Service: 10/15/18 Chief Complaint: Right flank pain History of Present Illness: The patient is a 28 F with right mid abdominal pain that wraps around to her back for the past 2 days. She does report nausea. She reports a fever up to 101 earlier today that is now resolved. She denies urinary symptoms. She was able to eat today and did not notice a significant change in the pain with food. Past history significant for prior C-sections and tubal ligation. Physical Examination: Vital signs unremarkable. Patient sitting upright in bed no acute distress. Head neck examination is normal. Heart is regular rate and rhythm. Lung sounds are clear. Abdomen is soft with right upper quadrant tenderness. No guarding or rebound. Negative Enrique sign. Back examination was no CVA tenderness. Test Results: CBC and chemistry studies unremarkable. LFTs and lipase normal. Urinalysis shows no sign of acute infection and no hematuria. test is negative. Right upper quadrant ultrasound reveals multiple stones filling the gallbladder with mild wall thickening at 3 mm. There is a positive sonographic Enrique sign. Common bile duct is 4.4 mm. Emergency Department Course and Treatment: Patient is given Toradol, Zofran, and IV fluids. On repeat evaluation patient is resting comfortably. I spoke with Dr. Saravia, on-call for surgery. Patient will be admitted tonight, made n.p.o., and will have her gallbladder removed tomorrow. She will be given a dose of Zosyn. Treatment Plan: [] Disposition: Admit Impression: Cholecystitis This note was generated with [employer] dictation software. It may contain incorrect words, spelling, and punctuation that were not noted in review of the chart prior to signing ED Disposition - Plan for ED Patient: Chief Complaint: Flank Pain
[2018-10-16] VITALS (11 sets, daily range): BP systolic 97–123; BP diastolic 58–77; PULSE 77–104; RESP 14–18; TEMP 36.6–36.9; O2SAT 95–100; BMI 30.8
[2018-10-16] MEDS: 0.9% Normal Saline 1,000 ML 125 ML IV ×2 (00:22→08:05)
[2018-10-16] MEDS: Morphine 2 MG/ML Syringe IV (01:16)
[2018-10-16 06:52] LABS: Absolute Lymphocyte Count 2.23 X10^3/ul (0.83-4.51); Absolute Neutrophil Count 5.3 X10^3/uL (2.0-7.7); Basophil# 0.02 X10^3/uL; Basophil% 0.2 % (0-1); Eosinophil# 0.19 X10^3/uL; Eosinophils% 2.2 % (0-5); Hematocrit 35.9 % (37-47); Hemoglobin 11.6 g/dl (12.0-15.0); Lymphocyte # 2.23 X10^3/ul (4.0); Mean Corp Hgb Conc 32.3 g/gl (32-36); Mean Corpuscular Hgb 28.7 pg (27.0-32.0); Mean Corpuscular Volume 88.9 fL (81-99); Mean Platelet Vol. 10.3 fl (6.2-12.0); Monocyte# 0.79 X10^3/uL; Monocyte% 9.2 % (0-10); Neutrophil # 5.34 X10^3/uL (2.7-7.7); Neutrophil % 62.2 % (47-70); Platelet Count 261 K/mm3 (150-450); RBC Distribution Width CV 12.7 % (11.6-14.6); RBC Distribution Width SD 40.4 fl (35.1-43.9); Red Blood Count 4.04 M/mm3 (4.2-5.4); White Blood Count 8.6 K/mm3 (4.4-11.0)
[2018-10-16 06:56] LABS: POSITIVE COUNT NO; POSITIVE DIFFERENTIAL NO; POSITIVE MORPHOLOGY NO
[2018-10-16 07:15] LABS: ALB/GLOB Ratio 0.9 RATIO (0.9-2.4); AST(SGOT) 14 U/L (15-37); Alanine Aminotransfer ALT/SGPT 15 U/L (13-56); Albumin, Serum 3.1 g/dL (3.2-5.0); Alkaline Phosphatase 57 U/L (45-117); Anion Gap 6 (5-15); BUN 14 mg/dL (7-18); BUN/Creat Ratio 20.1 RATIO (10-20); Chloride 112 mmol/L (98-107); EST Glomerular Filtration Rate 106 mL/min (>60); Est Glom Filt Rate - Afr Amer 128 mL/min (>60); Estimated Creatinine Clearance 93.79 ml/min; Globulin 3.4 g/dL (2.2-4.2); Glucose 71 mg/dL (74-106); Potassium 3.6 mmol/L (3.5-5.1); Protein, Total 6.5 g/dL (6.4-8.2); Sodium Level 143 mmol/L (136-145)
--- NOTE | 2018-10-16 07:18 | HP.PCM_ITS ---
Problem List (1) Acute cholecystitis Status: Acute History of Present Illness Date of Admission: 10/16/18 The patient is a 28 year old F who presented to the emergency room with 2 days of right upper quadrant pain. The patient reports nausea but no vomiting. She said she had fevers yesterday. She said the pain is in the right upper quadrant and epigastric area. She says that she had some atypical chest pain at the beginning of the month which was epigastric in nature. She saw Dr. Kearney for this. His plan was to follow-up in 6 months. Past Medical History Past Medical History (Chronic Problems): Chronic Problems (Last Reviewed 10/01/18 @ 15:45 by Danelle Arrieta) Low iron (Chronic) Medical History: Medical History (Last Reviewed 10/01/18 @ 15:45 by Danelle Arrieta) Low iron (Chronic) E61.1 Chest pain (Acute) R07.9 Murmur (Acute) R01.1 Shortness of breath (Acute) R06.02 Arthritis M19.90 neck/back pain Allergies No Known Allergies Allergy (Verified 10/16/18 00:51) Home Medications: Ambulatory Orders Medication Instructions Recorded Cyclobenzaprine [Flexeril] 10 mg PO TID PRN #20 tab 18 Naproxen [Naprosyn] 500 mg PO BID PRN PRN 10/16/18 Surgical History: Surgical History (Last Reviewed 10/01/18 @ 15:45 by Danelle Arrieta) History of Z98.891 History of dilatation and curettage Z98.890 History of tubal ligation Z98.51 Surgical History: - - Smoking Status: Never smoker Alcohol: None Drugs: None - *Family History Maternal Family History: Family History (Last Reviewed 10/01/18 @ 15:37 by Danelle Arrieta) Mother Arthritis Dizziness Back pain Review of Systems Constitutional: Reports: Anorexia, Fever HEENT: Denies: Difficulty Swallowing Cardiovascular: Denies: Chest Pain Respiratory: Denies: Cough, Shortness of Breath Gastrointestinal: Reports: Abdominal Pain, Nausea. Denies: Diarrhea, Hematochezia, Vomiting Genitourinary: Denies: Dysuria Musculoskeletal: Denies: Joint stiffness Skin: Denies: Jaundice Neurological: Denies: Balance problems Psychiatric: Denies: Anxiety Hematologic/ Lymphatic: Denies: Adenopathy VTE Information - Inpt Only VTE Present on Admission: No VTE Mechan Device Prophylaxis: SCD's Patient Problems: Active and Suspected Problems (Last Reviewed 10/01/18 @ 15:45 by Danelle Arrieta) Acute cholecystitis (Acute) - Physical Exam General: Alert, Oriented x3, Cooperative HEENT: Atraumatic, PERRLA Neck: No JVD Lungs: Normal air movement Cardiovascular: Regular rate, Regular Rhythm Abdomen: Soft, Non-Distended, Tender - Tender in the right upper quadrant with no guarding or rebound. Positive Enrique sign Extremities: No clubbing Musculoskeletal: No Muscle Wasting Neurological: Cranial nerves II-XII grossly intact Psych/Mental Status: Normal Affect, Appropriate Vital Signs Temp Pulse Resp BP Pulse Ox 97.9 F 85 16 116/68 100 10/16/18 06:53 10/16/18 06:53 10/16/18 06:53 10/16/18 06:53 10/16/18 06:53 Oxygen Delivery Method Room Air Weight: 168 lb 10.458 oz Body Mass Index (BMI) 30.8 Intake and Output for Last 24 Hours 10/14/18 10/15/18 10/16/18 23:59 23:59 23:59 Intake Total 762 / 762 Balance 762 / 762 Laboratory Tests Past 24 Hrs 10/15/18 10/15/18 10/15/18 21:07 21:07 22:02 WBC 10.1 RBC 4.41 Hgb 12.7 Hct 38.6 MCV 87.5 MCH 28.8 MCHC 32.9 RDW 12.8 RDW Differential 41.5 Plt Count 309 MPV 9.9 Immature Gran % (Auto) 0.100 Neut % (Auto) 65.7 Lymph % (Auto) 24.8 [place] % (Auto) 7.3 Eos % (Auto) 1.8 Baso % (Auto) 0.3 Absolute Neuts (auto) 6.6 Absolute Lymphs (auto) 2.50 Total Counted Not Reportable Sodium Potassium Chloride Carbon Dioxide Anion Gap BUN Creatinine Estim Creat Clear Calc Est GFR (MDRD) Af Amer Est GFR (MDRD) Non-Af BUN/Creatinine Ratio Glucose Calcium Total Bilirubin Direct Bilirubin AST ALT Alkaline Phosphatase Total Protein Albumin Globulin Lipase Urine Color Yellow Urine Clarity Sl. Cloudy Urine pH 6.0 Ur Specific [place] 1.025 Urine Protein Negative Urine Glucose (UA) Normal Urine Ketones Negative Urine Occult Blood Negative Urine Nitrite Negative Urine Bilirubin Negative Urine Urobilinogen Normal Ur Leukocyte Esterase 100 H Urine RBC 0 SEEN Urine WBC 0-5 SEEN Ur Squamous Epith Cells 5-10 SEEN Urine Bacteria RARE Urine Mucus RARE Urine Test Negative 10/15/18 10/16/18 10/16/18 22:02 06:24 06:24 WBC 8.6 RBC 4.04 L Hgb 11.6 L Hct 35.9 L MCV 88.9 MCH 28.7 MCHC 32.3 RDW 12.7 RDW Differential 40.4 Plt Count 261 MPV 10.3 Immature Gran % (Auto) 0.200 Neut % (Auto) 62.2 Lymph % (Auto) 26.0 [place] % (Auto) 9.2 Eos % (Auto) 2.2 Baso % (Auto) 0.2 Absolute Neuts (auto) 5.3 Absolute Lymphs (auto) 2.23 Total Counted Not Reportable Sodium 141 Pending Potassium 3.9 Pending Chloride 105 Pending Carbon Dioxide 25.0 Pending Anion Gap 11 Pending BUN 17 Pending Creatinine 0.72 Pending Estim Creat Clear Calc 91.18 Est GFR (MDRD) Af Amer 124 Pending Est GFR (MDRD) Non-Af 102 Pending BUN/Creatinine Ratio 23.8 H Pending Glucose 77 Pending Calcium 9.3 Pending Total Bilirubin 0.30 Pending Direct Bilirubin 0.09 AST 11 L Pending ALT 18 Pending Alkaline Phosphatase 69 Pending Total Protein 8.1 Pending Albumin 3.9 Pending Globulin 4.2 Lipase 131 Urine Color Urine Clarity Urine pH Ur Specific [place] Urine Protein Urine Glucose (UA) Urine Ketones Urine Occult Blood Urine Nitrite Urine Bilirubin Urine Urobilinogen Ur Leukocyte Esterase Urine RBC Urine WBC Ur Squamous Epith Cells Urine Bacteria Urine Mucus Urine Test Clinical Impression(s) from Imaging Studies Gallbladder Ultrasound 10/15/18 21:48 IMPRESSION: Multiple stones filling the gallbladder with mild wall thickening in upper limits of normal common duct distention for patient's age with a positive sonographic Enrique sign raises high concern for ultrasound findings consistent with acute cholecystitis. Electronically Signed: Lala Pelaez MD at 23:08 EST Tel , Service support , Assessment/Plan All Active Problems (Last Reviewed 10/01/18 @ 15:45 by Danelle Arrieta) Acute cholecystitis (Acute) Chest pain (Acute) Murmur (Acute) Pharyngitis, acute (Acute) Shortness of breath (Acute) 28-year-old female with acute cholecystitis 1. The patient has a 2-day history of right upper quadrant pain with nausea. The ultrasound of her right upper quadrant showed a thickened gallbladder full of gallstones. Patient's LFTs were normal. White count was borderline. I believe this is acute cholecystitis based on symptoms. Positive Enrique sign. 2. I admitted the patient last night and put her on antibiotics. Plan for laparoscopic cholecystectomy with cholangiograms today. 3. I discussed the procedure in detail with the patient. I discussed the risks, benefits, and alternatives of the procedure. I discussed the risks including but not limited to bleeding, infection, injury to surrounding organs such as the liver, bile duct, bowels. I did discuss the possibility of having to convert to an open procedure as well as the possibility that if any injuries occurred this may necessitate further surgery at a tertiary care center. Jamari Saravia MD Pager: [facility] [address] [place] [address], [address] [place] [address] Office:
--- NOTE | 2018-10-16 07:19 | NURSING ---
0800 zosyn sent to AC at this time as pt has left unit ~0700 for surgery.
[2018-10-16] MEDS: Piperacil/Tazobactam 3.375 GM/50 ML ML IV (07:50)
--- NOTE | 2018-10-16 08:00 | GALL_PTH ---
PATIENT: XIOMY SOW LOC: MS2 U#:[id number] AGE/SX: 28/F ROOM: [id number] RE10/16/[address]: Dr. Jamari Saravia MD : 1990 BED: 1 DIS: 10/16/2018 SPEC #: [id number] RECD: 10/16/18 09:15 STATUS: JANICE CANDIDO #: [id number] SERGEI: 10/16/18 08:[address]: Jamari Saravia DEPT: SURGICAL PATHOLOGY RECD BY: Aleksander Corcoran ENTERED: 10/16/18 10:28 SP TYPE: NOVA RICK DR: No Primary Care Phys Tissues: Gallbladder, NOS Procedures: Surgery Specimen Level III HEADER OPERATION: Laparoscopic cholecystectomy with IOC PRE-OP DIAGNOSIS: Cholelithiasis, cholecystitis TISSUE SUBMITTED: Gallbladder and contents MICROSCOPIC DIAGNOSIS Gallbladder, cholecystectomy: Chronic cholecystitis and cholelithiasis. AM:josselyn 12/20/18 MICROSCOPIC DESCRIPTION Slides are reviewed. GROSS DESCRIPTION Received is one container labeled with the patient's name and designated gallbladder. The specimen consists of a gallbladder measuring 13.5 x 3 x 3 cm. The external surface is smooth and glistening. Focally, it is granular, hemorrhagic and contains cautery artifact. The lumen of the gallbladder contains greenish mucoid bile and multiple yellow calculi ranging in size from 0.5 to 2 cm. The gallbladder mucosa is bile-stained and without any mass lesions. The gallbladder wall averages 0.1 cm in thickness and is free of mass lesions. Shake Table Operator sections of the gallbladder and the cystic duct are submitted in one cassette. / AM:josselyn 10/16/18 TC:3 CPT: 27284
--- NOTE | 2018-10-16 08:14 | RAD_ITS ---
STUDY: INTRAOPERATIVE CHOLANGIOGRAM. REASON FOR EXAM: Female, 28 years old. Laparoscopic cholecystectomy. FLUOROSCOPY TIME (if supplied): (31.3 seconds) minutes/seconds TECHNIQUE: An intraoperative cholangiogram was performed by the surgeon. Imaging was submitted. COMPARISON: None. FINDINGS: The visualized intrahepatic biliary ducts are unremarkable. The common bile duct is not dilated. No intraluminal filling defect is seen. There is free flow of contrast into the duodenum. RAD/Cholangiogram/ O R,Initial IMPRESSION: Unremarkable intraoperative cholangiogram. Electronically Signed: Omega Chowdhury MD at 12:32 EST Tel [phone], Service support ,
[2018-10-16] MEDS: Bupiv/Epi 0.5% Mpf 30 ML Vial (08:59)
--- NOTE | 2018-10-16 09:08 | PCM.OPRPT ---
Problem List (1) Acute cholecystitis Status: Acute Report of Operation Date of Procedure: 10/16/18 Pre-Operative Diagnosis: Acute cholecystitis Post-Operative Diagnosis: Same Surgery/Procedure Performed:: Laparoscopic cholecystectomy with cholangiogram Specimen's removed: Gallbladder and contents Description of Procedure: After obtaining informed consent patient was brought back to the operating room. General anesthesia was induced. The abdomen was prepped and draped in usual sterile fashion. A small midline incision was made superior to the umbilicus and deepened to the level of fascia. The fascia was elevated and incised. Next the peritoneum was elevated and incised in the same fashion. Finger sweep was performed and the Wade trocar was placed into the abdomen. The balloon was inflated. The abdomen was inflated to 15 mmHg. Next a camera was introduced into the abdomen and the abdomen was inspected. Next under direct visualization three 5-mm ports were placed one subxiphoid and 2 subcostal. Next the gallbladder was elevated and retracted toward the right shoulder. The peritoneum was stripped from the gallbladder. The infundibulum was located and retracted laterally. Next the triangle of Calot was dissected and the cystic duct and cystic artery were identified. Cholangiograms were performed. The cystic duct was clipped proximally. Next a small nathen was made in the cystic duct and a Ranfac catheter was placed through the abdominal wall and into the cystic duct. Cholangiograms were performed and there was good filling of the common bile duct and good flow into the duodenum with no filling defects. Next the Ranfac catheter was removed and the cystic duct was clipped. Three hemolock clips were placed across the cystic duct. The cystic duct was then divided leaving 2 clips on the stump. The cystic artery was clipped and divided in the same fashion. The hook cautery was then used to take the gallbladder off of the gallbladder bed. Hemostasis was obtained. Gallbladder fossa was irrigated and no active bleeding or bile leakage was noted. Next the camera switched to a 5 mm camera and introduced in the subxiphoid port. An Endopouch bag was placed through the umbilical port and the gallbladder was placed into it. The gallbladder was then removed through the umbilical incision. The camera was then reinserted through the umbilical port. The gallbladder fossa was inspected once more and noted to be hemostatic with no leaking bile. The abdomen was suctioned dry the 5 mm ports were removed under direct visualization. The umbilical port was then removed and the air was removed from the abdomen. Next using an 0 Vicryl suture the umbilical fascia was closed in a [id number] fashion. The umbilical port site was irrigated local anesthetic was administered to all the incisions. All the incisions were closed subcuticular 4-0 Monocryl sutures followed by Steri-Strips and dressings. The patient was awoken and taken to PACU in stable condition. - Admit VTE Documentation VTE Present on Admission: No VTE Mechan Device Prophylaxis: SCD's
--- NOTE | 2018-10-16 09:12 | DCINST_ITS ---
Discharge Diet: Light diet - advance as tolerated Discharge Activity: Return to Normal Activity, May Not Drive - for 2-3 days or while taking narcotic pain medicataions., - - Do not drive, work heavy equipment or sign legal documents for 24 hours. May shower in (days): 1 - with the bandage in place. Lifting Restrictions: 20 lbs for 2 weeks Additional Activity Instructions:: Pain medication may cause nausea. You should typically eat light foods as you take your pain medications. Pain medication may also cause constipation. If this is a problem for you, please discuss with your doctor. Call your doctor if your incision/area has: Continuous Slow Oozing, Sudden Increased Bleeding, Increased Pain/ Swelling, Increased Redness, Foul Smelling Discharge, Fever of 101 or Higher Call your doctor if you observe: Fever of 101 or Higher Suture Line Care: Avoid Pulling/Pushing, Avoid Pinching/Bending Additional Dressing/Incision Instructions:: Leave operative bandaids on for 2 days. When you remove dressing, leave Steri-Strips on until your follow-up appointment, or until the Steri-Strips fall off on their own. Allergies/Adverse Reactions: Allergies No Known Allergies Allergy (Verified 10/16/18 00:51) Medications to take at Discharge Cyclobenzaprine [Flexeril] 10 mg PO TID PRN #20 tab 09/27/18 Hydrocodone Bitart/Apap 5-325 [[place] 5/325] 1 - 2 tablet PO Q4H PRN PRN 7 Days #40 tablet 10/16/18 Naproxen [Naprosyn] 500 mg PO BID PRN PRN 10/16/18 The following prescriptions were given: Hydrocodone Bitart/Apap 5-325 [[place] 5/325] 1 - 2 tablet PO Q4H PRN PRN 7 Days #40 tablet PRN Reason: Severe Pain (6-08/07) Primary Care Physician: Care Physician,No Primary [Primary Care Provider] - Test Results: Test results from this visit will be discussed in further detail at your follow- up appointment, if applicable. Please Follow Up With: Jamari Saravia MD When: Please call to schedule 2 week follow up appointment. [phone]
--- NOTE | 2018-10-16 09:13 | DS.PCM_ITS ---
Discharge Date and Diagnosis Date of Admission: 10/16/18 Date of Discharge: 10/16/18 - Primary Discharge Diagnosis Active and Suspected Problems (Last Reviewed 10/01/18 @ 15:45 by Danelle Arrieta) Acute cholecystitis (Acute) - Secondary Discharge Diagnosis Chronic Problems (Last Reviewed 10/01/18 @ 15:45 by Danelle Arrieta) Low iron (Chronic) Hospital Course and Treatment Imaging Results: 10/16/18 07:38 Cholangiogram/ O R,Initial [RAD] Urgent O.R. Fluoro for C-Arm [RAD] Urgent Operations: cholecystecomy Procedures: None Summary of Care Provided: The patient is a 28 year old F who was admitted overnight for right upper quadrant pain. The following morning she was taken for laparoscopic cholecystectomy. That evening she was tolerating a diet and doing well and was discharged home in stable condition. - Physical Exam Vital Signs Temp Pulse Resp BP Pulse Ox 97.9 F 85 16 116/68 100 10/16/18 06:53 10/16/18 06:53 10/16/18 06:53 10/16/18 06:53 10/16/18 06:53 Oxygen Delivery Method Room Air Weight: 168 lb 10.458 oz Body Mass Index (BMI) 30.8 Intake and Output for Last 24 Hours 10/14/18 10/15/18 10/16/18 23:59 23:59 23:59 Intake Total 762 / 762 Balance 762 / 762 Laboratory Tests Past 24 Hrs 10/15/18 10/15/18 10/15/18 21:07 21:07 22:02 WBC 10.1 RBC 4.41 Hgb 12.7 Hct 38.6 MCV 87.5 MCH 28.8 MCHC 32.9 RDW 12.8 RDW Differential 41.5 Plt Count 309 MPV 9.9 Immature Gran % (Auto) 0.100 Neut % (Auto) 65.7 Lymph % (Auto) 24.8 [place] % (Auto) 7.3 Eos % (Auto) 1.8 Baso % (Auto) 0.3 Absolute Neuts (auto) 6.6 Absolute Lymphs (auto) 2.50 Total Counted Not Reportable Sodium Potassium Chloride Carbon Dioxide Anion Gap BUN Creatinine Estim Creat Clear Calc Est GFR (MDRD) Af Amer Est GFR (MDRD) Non-Af BUN/Creatinine Ratio Glucose Calcium Total Bilirubin Direct Bilirubin AST ALT Alkaline Phosphatase Total Protein Albumin Globulin Albumin/Globulin Ratio Lipase Urine Color Yellow Urine Clarity Sl. Cloudy Urine pH 6.0 Ur Specific [place] 1.025 Urine Protein Negative Urine Glucose (UA) Normal Urine Ketones Negative Urine Occult Blood Negative Urine Nitrite Negative Urine Bilirubin Negative Urine Urobilinogen Normal Ur Leukocyte Esterase 100 H Urine RBC 0 SEEN Urine WBC 0-5 SEEN Ur Squamous Epith Cells 5-10 SEEN Urine Bacteria RARE Urine Mucus RARE Urine Test Negative 10/15/18 10/16/18 10/16/18 22:02 06:24 06:24 WBC 8.6 RBC 4.04 L Hgb 11.6 L Hct 35.9 L MCV 88.9 MCH 28.7 MCHC 32.3 RDW 12.7 RDW Differential 40.4 Plt Count 261 MPV 10.3 Immature Gran % (Auto) 0.200 Neut % (Auto) 62.2 Lymph % (Auto) 26.0 [place] % (Auto) 9.2 Eos % (Auto) 2.2 Baso % (Auto) 0.2 Absolute Neuts (auto) 5.3 Absolute Lymphs (auto) 2.23 Total Counted Not Reportable Sodium 141 143 Potassium 3.9 3.6 Chloride 105 112 H Carbon Dioxide 25.0 25.0 Anion Gap 11 6 BUN 17 14 Creatinine 0.72 0.70 Estim Creat Clear Calc 91.18 93.79 Est GFR (MDRD) Af Amer 124 128 Est GFR (MDRD) Non-Af 102 106 BUN/Creatinine Ratio 23.8 H 20.1 H Glucose 77 71 L Calcium 9.3 8.0 L Total Bilirubin 0.30 0.40 Direct Bilirubin 0.09 AST 11 L 14 L ALT 18 15 Alkaline Phosphatase 69 57 Total Protein 8.1 6.5 Albumin 3.9 3.1 L Globulin 4.2 3.4 Albumin/Globulin Ratio 0.9 Lipase 131 Urine Color Urine Clarity Urine pH Ur Specific [place] Urine Protein Urine Glucose (UA) Urine Ketones Urine Occult Blood Urine Nitrite Urine Bilirubin Urine Urobilinogen Ur Leukocyte Esterase Urine RBC Urine WBC Ur Squamous Epith Cells Urine Bacteria Urine Mucus Urine Test Discharge Diet: Light diet - advance as tolerated Discharge Activity: Return to Normal Activity, May Not Drive - for 2-3 days or while taking narcotic pain medicataions., - - Do not drive, work heavy equipment or sign legal documents for 24 hours. May shower in (days): 1 - with the bandage in place. Additional Activity Instructions:: Pain medication may cause nausea. You should typically eat light foods as you take your pain medications. Pain medication may also cause constipation. If this is a problem for you, please discuss with your doctor. Call your doctor if your incision/area has: Continuous Slow Oozing, Sudden Increased Bleeding, Increased Pain/ Swelling, Increased Redness, Foul Smelling Discharge, Fever of 101 or Higher Call your doctor if you observe: Fever of 101 or Higher Suture Line Care: Avoid Pulling/Pushing, Avoid Pinching/Bending Additional Dressing/Incision Instructions:: Leave operative bandaids on for 2 days. When you remove dressing, leave Steri-Strips on until your follow-up appointment, or until the Steri-Strips fall off on their own. Home Medications: Medications to take at Discharge Cyclobenzaprine [Flexeril] 10 mg PO TID PRN #20 tab 09/27/18 Hydrocodone Bitart/Apap 5-325 [[place] 5/325] 1 - 2 tablet PO Q4H PRN PRN 7 Days #40 tablet 10/16/18 Naproxen [Naprosyn] 500 mg PO BID PRN PRN 10/16/18 Following Prescrptions Were Given to Patient: Hydrocodone Bitart/Apap 5-325 [[place] 5/325] 1 - 2 tablet PO Q4H PRN PRN 7 Days #40 tablet PRN Reason: Severe Pain (6-10/10) Primary Care Physician: Care Physician,No Primary [Primary Care Provider] - Please Follow Up With: Jamari Saravia MD When: Please call to schedule 2 week follow up appointment. [phone] Patient Instructions: Cholecystectomy, Discharge Instructions for Laparoscopic Cholecystectomy Medical Necessity - Tobacco Use Smoking Status: Never smoker Meaningful Use Info Meaningful Use Diagnoses (Choose all that apply): None applicable
[2018-10-16] MEDS: 0.9% NaCl Peripheral Flush Adult/Peds IV (10:37)
[2018-10-16] MEDS: Ondansetron 4 MG/2 ML Vial IV (10:37)
[2018-10-16] MEDS: Acetaminophen 325 MG Tablet 650 MG PO (14:13)
--- NOTE | 2018-10-16 17:56 | NURSING ---
pt able to eat applesauce and had soup- tolerated well.
--- NOTE | 2018-10-16 18:02 | NURSING ---
discharge information given regarding diet suggestions after cholecystectomy. pt requested work excuse for 1 week- will contact to address.
--- OUTSIDE RECORDS SUMMARY | 2019-01-17 06:28 | XMS RPT_ITS ---
:1990 Author Organization OHIP Support Name Relationship Address Phone SANTOS OSW Unavailable [address] + [place] [address] [place] Unavailable [address] + [place] [address] JUANJOSE, SANTOS Unavailable [address] + [place] [address] [place] Unavailable [address] + [place] [address] JUANJOSE, SANTOS Unavailable [address] + [place] [address] [place] Unavailable [address] + [place] [address] JUANJOSE, SANTOS Unavailable [address] + [place] [address] [place] Unavailable [address] + [place] [address] JUANJOSE, SANTOS Unavailable [address] + [place] [address] [place] Unavailable [address] + [place] [address] JUANJOSE, SANTOS Unavailable [address] [facility] [address] + [place] [address] [place] Unavailable [address] + [place] [address] JUANJOSE, SANTOS Unavailable [address] [facility] [address] + [place] [address] [place] Unavailable [address] + [place] [address] JUANJOSE, SANTOS Unavailable Unavailable + JUANJOSE, SANTOS Unavailable Unavailable + JUANJOSE, SANTOS Unavailable Unavailable + JUANJOSE, SANTOS Unavailable [address] [facility] [address] + [place] [address] [facility] Unavailable [address] + [place] [address] JUANJOSE, SANTOS Unavailable [address] + [place] [address] [facility] Unavailable [address] + [place] [address] JUANJOSE, SANTOS Unavailable [address] + [place] [address] [facility] Unavailable [address] + [place] [address] JUANJOSE, SANTOS Unavailable [address] + [place] [address] [facility] Unavailable [address] + [place] [address] JUANJOSE, SANTOS Unavailable [address] + [place] [address] [facility] Unavailable [address] + [place] [address] JUANJOSE, SANTOS Unavailable [address] + [place] [address] [facility] Unavailable [address] + [place] [address] JUANJOSE, SANTOS Unavailable [address] + [place] [address] [facility] Unavailable [address] + [place] [address] JUANJOSE, SANTOS Unavailable Unavailable + JUANJOSE, SANTOS Unavailable Unavailable + JUANJOSE, SANTOS Unavailable Unavailable + Care Team Providers Name Role Phone BELIA RODRIGUEZ MD, JR. Attending Unavailable BELIA RODRIGUEZ MD, JR. Primary Care Unavailable BELIA RODRIGUEZ MD, JR. Attending Unavailable BELIA RODRIGUEZ MD, JR. Primary Care Unavailable Primay Care Physicia, No Primary Care Unavailable Jamari Saravia Admitting Unavailable Jamari Saravia Attending Unavailable Jamari Saravia Admitting Unavailable Jamari Saravia Attending Unavailable Primay Care Physicia, No Primary Care Unavailable Rani Jamari Consulting Unavailable Sterling Whelan Attending Unavailable Belia Rodriguez Jr. Referring Unavailable Luis Kearney Attending Unavailable Belia Rodriguez Referring Unavailable Luis Kearney Attending Unavailable Luis Kearney Referring Unavailable Primay Care Physicia, No Primary Care Unavailable Luis Kearney Attending Unavailable Caio, Luis Referring Unavailable Primay Care Physicia, No Primary Care Unavailable Ramon Vincent, Belia Primary Care Unavailable Emanuel Cassidy Attending Unavailable Sterling Whelan Attending Unavailable Ramon Vincent, Bel[place] Referring Unavailable Yadira, Cooper Attending Unavailable Ramon Vincent, Belia Primary Care Unavailable Yadira, Cooper Referring Unavailable Yadira, Cooper Attending Unavailable Yaidra, Cooper Attending Unavailable Ramon Rodas., Belia Primary Care Unavailable Webess, Cooper Referring Unavailable CaljaimeAlbinaJamari Attending Unavailable Primay Care Physicia, No Referring Unavailable UngShahnaz chairez Attending Unavailable Rodriguez, [place] Primary Care Unavailable Sterling Whelan Attending Unavailable PROBLEMS PROBLEMS DATE TYPE CONDITION / CODE ATTENDING STATUS SOURCE 10/17/2018 Unknown K81.0 - Acute Rani Active [place] cholecystitis / Jamari [facility] K81.0(ICD-10) Hospital Repository 10/01/2018 Unknown R07.9 - Chest pain, Luis Kearney Active [place] unspecified / Community R07.9(ICD-10) Hospital Repository 10/01/2018 Unknown R06.02 - Shortness of Luis Kearney Active [place] breath / Community R06.02(ICD-10) Hospital Repository 10/01/2018 Unknown R40.0 - Somnolence / Luis Kearney Active [place] R40.0(ICD-10) [facility] Hospital Repository 08/02/2018 Unknown J02.9 - Acute Tip Sterling Active [place] pharyngitis, [facility] unspecified / Hospital J02.9(ICD-10) Repository 07/18/2018 Unknown R30.0 - Dysuria / Cooper May Active [place] R30.0(ICD-10) [facility] Hospital Repository 03/21/2018 Unknown R87.612 - Low grade Cooper May Active [place] squamous [facility] intraepithelial Hospital lesion on cytologic Repository smear of cervix (LGSIL) / R87.612(ICD-10) 03/07/2018 Unknown Z12.4 - Encounter for Cooper May Active [place] screening for Community malignant neoplasm of Hospital cervix / Repository Z12.4(ICD-10) PROCEDURES PROCEDURES No Procedure Records FoundRESULTS RESULTS SURGERY VISIT REPORT Observed: 11/01/2018 Status: F Source: [place] 12:14 PM [facility] REPOSITORY [facility] [address] [place] [address]. 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 She try to go back to work 1 week after surgery but was unable to lift anything. She feels better now. She says that she does have some diarrhea with fast food. Objective Details: Incisions are healing well. Assessment AND Plan Problems 1. Acute cholecystitis K81.0 Plan 1. Patient is generally doing well after her cholecystectomy. I advised her to stay on a low-fat diet until the diarrhea subsided. She is okay at this point to go back to full duty. Follow-up as needed Jamari Saravia MD Pager: [facility] [address] [place] [address], [address] [place] [address] Office: Coding Level of Care Code Global Post Op Diagnoses Acute cholecystitis K81.0 11/01/18 1214 <Electronically signed by Jamari Saravia MD> Date Jamari Saravia MD Cosigner Signature: Date (if applicable) CC: GROUP A STREP BY Collected: 10/29/2018 Status: F Source: [place] PCR 2:[address] [facility] REPOSITORY TYPE CODE TESTS RESULT OUT OF REFERENCE UNITS RANGE LAB GASSRC Throat Swab GAS Specimen Source LAB PCRGAS Negative for Group A Strep Group A PCR Streptococcus by PCR. Result Comment: This test was developed and its performance characteristics determined by [facility] [place] ([facility] It has not been cleared or approved by the FDA. -[facility] is regulated under CLIA as qualified to perform high-complexity testing. This test is used for clinical purposes. It should not be regarded as inv estigational or for research. Performed By: #### GASPCR #### [facility] [address], [place] [address] PROGRESS Observed: 10/29/2018 Status: COMPLETED Source: [place] 1:25 PM [facility] REPOSITORY HNO ID: [id number] Author: Delores Hinds Service: (none) Author Type: Physician Pit Crane Operator Type: Progress Notes Filed: 10/29/2018 2:09 PM Note Text: 10/29/2018 Patient presents with: Head Congestion: nasal drainage, chest congestion, cough, gland pain x 2 days SUBJECTIVE: This is a 28 year old that is here today for Complaint(s) of cough and chest congestion x 2 days. + nasal congestion. Notes sore throat and pain with swallowing. Notes some wheezing associated. Swollen glands. + NEGRETE, mild. + nasal congestion. Denies fever/chills, vomiting, diarrhea. No past medical history on file. ALLERGIES Prednisone MEDICATIONS Current Outpatient Prescriptions: ferrous sulfate (IRON ORAL) Take by mouth. phenazopyridine (PYRIDIUM) 200 mg tablet Take 1 tablet by mouth three times daily as needed. (Patient not taking: Reported on 10/29/2018 ) No current facility-administered medications for this visit. SOCIAL HISTORY Social History Marital status: Single Spouse name: Years of education: Number of children: Social History Main Topics Smoking status: Never Smoker Smokeless tobacco: Never Used REVIEW OF SYSTEMS All other reviewed and negative other than HPI. OBJECTIVE: BP 110/70 Pulse 104 Temp 37.1 ?C (98.8 ?F) (Tympanic) Resp 18 Wt 75.3 kg (166 lb) LMP 10/27/2018 SpO2 98% APPEARANCE alert, in no acute distress, well-hydrated, well nourished. EYES PERRLA, conjunctiva and sclera normal. EARS External ears normal, canals clear. TMs normal MIRIAN NOSE/SINUS Nares normal. Septum midline. Mucosa normal. No drainage or sinus tenderness. THROAT + posterior oropharyngeal erythema, no exudate. Uvula midline NECK Supple, no adenopathy; HEART RRR with normal S1 and S2 LUNG clear to auscultation, No wheezing, rhonchi, rales. ASSESSMENT/PLAN: 1. Viral URI with cough - ICD9: 465.9, ICD10: J06.9, B97.89 - Discussed viral etiology and rationale for treatment. - Symptomatic treatment with prn analgesia - Supportive care with fluids and rest - The patient may also use OTC cough and cold meds as needed, behind the counter Pseudoephedrine, warm salt water gargles, throat lozenges and/or OTC throat spray as needed and nasal saline gtts and suction prn. - Follow up in 3-5 days if symptoms persist or sooner if worsening of symptoms - RAPID STREP TEST B/O - GROUP A STREPTOCOCCUS BY PCR Reviewed red flags and when to seek care sooner. The patient indicates understanding of these issues and agrees with the plan. Delores Hinds PA-C CNOV Observed: 10/29/2018 Status: COMPLETED Source: [place] 1:00 PM [facility] REPOSITORY Office Visit (WSTR) XIOMY SOW ([id number]) 1990 F Date Time Provider Department 10/29/18 1:00 PM DELORES HINDS) [facility] During your visit today, we recorded the following information about you: Temperature Pulse Respiration Blood pressure 98.8 degrees 104/minute 18/minute 110/70 Weight Last Period 75.3 kg 10/27/18 Delores Hinds PA-C 10/29/2018 2:09 PM Signed 10/29/2018 Patient presents with: Head Congestion: nasal drainage, chest congestion, cough, gland pain x 2 days SUBJECTIVE: This is a 28 year old that is here today for Complaint(s) of cough and chest congestion x 2 days. + nasal congestion. Notes sore throat and pain with swallowing. Notes some wheezing associated. Swollen glands. + NEGRETE, mild. + nasal congestion. Denies fever/chills, vomiting, diarrhea. No past medical history on file. ALLERGIES Prednisone MEDICATIONS Current Outpatient Prescriptions: ferrous sulfate (IRON ORAL) Take by mouth. phenazopyridine (PYRIDIUM) 200 mg tablet Take 1 tablet by mouth three times daily as needed. (Patient not taking: Reported on 10/29/2018 ) No current facility-administered medications for this visit. SOCIAL HISTORY Social History Marital status: Single Spouse name: Years of education: Number of children: Social History Main Topics Smoking status: Never Smoker Smokeless tobacco: Never Used REVIEW OF SYSTEMS All other reviewed and negative other than HPI. OBJECTIVE: BP 110/70 Pulse 104 Temp 37.1 ?C (98.8 ?F) (Tympanic) Resp 18 Wt 75.3 kg (166 lb) LMP 10/27/2018 SpO2 98% APPEARANCE alert, in no acute distress, well-hydrated, well nourished. EYES PERRLA, conjunctiva and sclera normal. EARS External ears normal, canals clear. TMs normal MIRIAN NOSE/SINUS Nares normal. Septum midline. Mucosa normal. No drainage or sinus tenderness. THROAT + posterior oropharyngeal erythema, no exudate. Uvula midline NECK Supple, no adenopathy; HEART RRR with normal S1 and S2 LUNG clear to auscultation, No wheezing, rhonchi, rales. ASSESSMENT/PLAN: 1. Viral URI with cough - ICD9: 465.9, ICD10: J06.9, B97.89 - Discussed viral etiology and rationale for treatment. - Symptomatic treatment with prn analgesia - Supportive care with fluids and rest - The patient may also use OTC cough and cold meds as needed, behind the counter Pseudoephedrine, warm salt water gargles, throat lozenges and/or OTC throat spray as needed and nasal saline gtts and suction prn. - Follow up in 3-5 days if symptoms persist or sooner if worsening of symptoms - RAPID STREP TEST B/O - GROUP A STREPTOCOCCUS BY PCR Reviewed red flags and when to seek care sooner. The patient indicates understanding of these issues and agrees with the plan. Delores Hinds PA-C Referring Provider: SELF [200] Allergies As of Date: 10/29/2018 Noted Allergy Reaction PREDNISONE 05/20/2018 2 - Rash Comments: blisters in mouth Date Reviewed: 10/29/2018 Reviewed by: Kelle Wick Ma - Fully Assessed Reason for Visit: Head Congestion [234] Cmt: nasal drainage, chest congestion, cough, gland pain x 2 days Primary Visit Diagnosis:Viral URI with cough [J06.9, B97.89] Order(s):RAPID STREP TEST B/O [2611707] Order #: [id number] GROUP A STREPTOCOCCUS BY PCR [SQGASPCR] Order #: [id number] Prescriptions as of 10/29/2018 Sig: IRON ORAL Take by mouth. PHENAZOPYRIDINE 200 MG TABLET Take 1 tablet by mouth three * Patient not taking: Reported on 10/29/2018 Problem List As Of Date: 10/29/2018 (None) Encounter Status:Closed by DELORES HINDS PA-C on 10/29/18 DISCHARGE SUMMARY Observed: 10/17/2018 Status: F Source: [place] 9:09 AM [facility] Medical Records Department [address] [place] [address] Discharge Summary 10/16/18911 MR#: [id number] Acct: [id number] Name: XIOMY SOW Rep #: [id number] : 1990 28 From: Jamari Saravia MD PCP: Care Physician, No Primary Status: DIS SHAMIR Y Location: [place] [id number] Discharge Date and Diagnosis Date of Admission: 10/16/18 Date of Discharge: 10/16/18 - Primary Discharge Diagnosis Active and Suspected Problems (Last Reviewed 10/01/18 @ 15:45 by Danelle Arrieta) Acute cholecystitis (Acute) - Secondary Discharge Diagnosis Chronic Problems (Last Reviewed 10/01/18 @ 15:45 by Danelle Toledo Low iron (Chronic) Hospital Course and Treatment Imaging Results: 10/16/18 07:38 Cholangiogram/ O R,Initial [RAD] Urgent O.R. Fluoro for C-Arm [RAD] Urgent Operations: cholecystecomy Procedures: None Summary of Care Provided: The patient is a 28 year old F who was admitted overnight for right upper quadrant pain. The following morning she was taken for laparoscopic cholecystectomy. That evening she was tolerating a diet and doing well and was discharged home in stable condition. - Physical Exam Vital Signs Temp Pulse Resp BP Pulse [...] MCHC 32.9 RDW 12.8 RDW Differential 41.5 Plt Count 309 Discharge Diet: Light diet - advance as tolerated Discharge Activity: Return to Normal Activity, May Not Drive - for 2-3 days or while taking narcotic pain medicataions., - - Do not drive, work heavy equipment or sign legal documents for 24 hours. May shower in (days): 1 - with the bandage in place. Additional Activity Instructions:: Pain medication may cause nausea. You should typically eat light foods as you take your pain medications. Pain medication may also cause constipation. If this is a problem for you, please discuss with your doctor. Call your doctor if your incision/area has: Continuous Slow Oozing, Sudden Increased Bleeding, Increased Pain/ Swelling, Increased Redness, Foul Smelling Discharge, Fever of 101 or Higher Call your doctor if you observe: Fever of 101 or Higher Suture Line Care: Avoid Pulling/Pushing, Avoid Pinching/Bending Additional Dressing/Incision Instructions:: Leave operative bandaids on for 2 days. When you remove dressing, leave Steri-Strips on until your follow-up appointment, or until the Steri-Strips fall off on their own. Home Medications: Medications to take at Discharge Cyclobenzaprine [Flexeril] 10 mg PO TID PRN #20 tab 09/27/18 Hydrocodone Bitart/Apap 5-325 [Mena 5/325] 1 - 2 tablet PO Q4H PRN PRN 7 Days #40 tablet 10/16/18 Naproxen [Naprosyn] 500 mg PO BID PRN PRN 10/16/18 Following Prescrptions Were Given to Patient: Hydrocodone Bitart/Apap 5-325 [Mena 5/325] 1 - 2 tablet PO Q4H PRN PRN 7 Days #40 tablet PRN Reason: Severe Pain (-08/07) Primary Care Physician: Care Physician,No Primary [Primary Care Provider] - Please Follow Up With: Jamari Saravia MD When: Please call to schedule 2 week follow up appointment. [phone] Patient Instructions: Cholecystectomy, Discharge Instructions for Laparoscopic Cholecystectomy Medical Necessity - Tobacco Use Smoking Status: Never smoker Meaningful Use Info Meaningful Use Diagnoses (Choose all that apply): None applicable 10/17/18908 <Electronically signed by Jamari Saravia MD> Date Jamari Saravia MD Cosigner Signature (if applicable): Date CC: No Primary Care Physician; Jamari Saravia MD Signed DISCHARGE INSTRUCTION Observed: 10/16/2018 Status: F Source: [place] 9:12 AM [facility] REPOSITORY [facility] Medical Records Department [address] [place] [address] Instructions for Home/Discharge Instructions 10/16/18910 MR#: [id number] Acct: [id number] Name: XIOMY SOW Clem Rep #: [id number] : 1990 28 From: Jamari Saravia MD PCP: Care Physician, No Primary Status: ADM SHAMIR Discharge Diet: Light diet - advance as tolerated Discharge Activity: Return to Normal Activity, May Not Drive - for 2-3 days or while taking narcotic pain medicataions., - - Do not drive, work heavy equipment or sign legal documents for 24 hours. May shower in (days): 1 - with the bandage in place. Lifting Restrictions: 20 lbs for 2 weeks Additional Activity Instructions:: Pain medication may cause nausea. You should typically eat light foods as you take your pain medications. Pain medication may also cause constipation. If this is a problem for you, please discuss with your doctor. Call your doctor if your incision/area has: Continuous Slow Oozing, Sudden Increased Bleeding, Increased Pain/ Swelling, Increased Redness, Foul Smelling Discharge, Fever of 101 or Higher Call your doctor if you observe: Fever of 101 or Higher Suture Line Care: Avoid Pulling/Pushing, Avoid Pinching/Bending Additional Dressing/Incision Instructions:: Leave operative bandaids on for 2 days. When you remove dressing, leave Steri-Strips on until your follow-up appointment, or until the Steri-Strips fall off on their own. Allergies/Adverse Reactions: Allergies No Known Allergies Allergy (Verified 10/16/18 00:51) Medications to take at Discharge Cyclobenzaprine [Flexeril] 10 mg PO TID PRN #20 tab 09/27/18 Hydrocodone Bitart/Apap 5-325 [Mena 5/325] 1 - 2 tablet PO Q4H PRN PRN 7 Days #40 tablet 10/16/18 Naproxen [Naprosyn] 500 mg PO BID PRN PRN 10/16/18 The following prescriptions were given: Hydrocodone Bitart/Apap 5-325 [Mena 5/325] 1 - 2 tablet PO Q4H PRN PRN 7 Days #40 tablet PRN Reason: Severe Pain (6-08/07) Primary Care Physician: Care Physician,No Primary [Primary Care Provider] - Test Results: Test results from this visit will be discussed in further detail at your follow-up appointment, if applicable. Please Follow Up With: Jamari Saravia MD When: Please call to schedule 2 week follow up appointment. [phone] 10/16/18911 <Electronically signed by Jamari Saravia MD> Date Jamari Saravia MD CC: No Primary Care Physician OPERATIVE REPORT Observed: 10/16/2018 Status: F Source: [place] 9:10 AM [facility] REPOSITORY [facility] Medical Records Department [address] [place] [address] Operative Report 10/16/18 0908 MR#: [id number] Acct: [id number] Name: XIOMY SOW Rep #: [id number] : 1990 28 From: Jamari Saravia MD PCP: Care Physician, No Primary Status: ADM SHAMIR Y Location: [place] [address] Problem List (1) Acute cholecystitis Status: Acute Report of Operation Date of Procedure: 10/16/18 Pre-Operative Diagnosis: Acute cholecystitis Post-Operative Diagnosis: Same Surgery/Procedure Performed:: Laparoscopic cholecystectomy with cholangiogram Specimen's removed: Gallbladder and contents Description of Procedure: After obtaining informed consent patient was brought back to the operating room. General anesthesia was induced. The abdomen was prepped and draped in usual sterile fashion. A small midline incision was made superior to the umbilicus and deepened to the level of fascia. The fascia was elevated and incised. Next the peritoneum was elevated and incised in the same fashion. Finger sweep was performed and the Wade trocar was placed into the abdomen. The balloon was inflated. The abdomen was inflated to 15 mmHg. Next a camera was introduced into the abdomen and the abdomen was inspected. Next under direct visualization three 5-mm ports were placed one subxiphoid and 2 subcostal. Next the gallbladder was elevated and retracted toward the right shoulder. The peritoneum was stripped from the gallbladder. The infundibulum was located and retracted laterally. Next the triangle of Calot was dissected and the cystic duct and cystic artery were identified. Cholangiograms were performed. The cystic duct was clipped proximally. Next a small nathen was made in the cystic duct and a Ranfac catheter was placed through the abdominal wall and into the cystic duct. Cholangiograms were performed and there was good filling of the common bile duct and good flow into the duodenum with no filling defects. Next the Ranfac catheter was removed and the cystic duct was clipped. Three hemolock clips were placed across the cystic duct. The cystic duct was then divided leaving 2 clips on the stump. The cystic artery was clipped and divided in the same fashion. The hook cautery was then used to take the gallbladder off of the gallbladder bed. Hemostasis was obtained. Gallbladder fossa was irrigated and no active bleeding or bile leakage was noted. Next the camera switched to a 5 mm camera and introduced in the subxiphoid port. An Endopouch bag was placed through the umbilical port and the gallbladder was placed into it. The gallbladder was then removed through the umbilical incision. The camera was then reinserted through the umbilical port. The gallbladder fossa was inspected once more and noted to be hemostatic with no leaking bile. The abdomen was suctioned dry the 5 mm ports were removed under direct visualization. The umbilical port was then removed and the air was removed from the abdomen. Next using an 0 Vicryl suture the umbilical fascia was closed in a [id number] fashion. The umbilical port site was irrigated local anesthetic was administered to all the incisions. All the incisions were closed subcuticular 4-0 Monocryl sutures followed by Steri-Strips and dressings. The patient was awoken and taken to PACU in stable condition. - Admit VTE Documentation VTE Present on Admission: No VTE Mechan Device Prophylaxis: SCD's 10/16/18909 <Electronically signed by Jamari Saravia MD> Date Jamari Saravia MD CC: No Primary Care Physician; Jamari Saravia MD Signed GALLBLADDER Observed: 10/16/2018 Status: F Source: [place] 8:00 AM [facility] REPOSITORY Patient: XIOMY SOW : 1990 () Acct Num: [id number] Phys: Jamari Saravia MD Unit Num: [id number] Loc: MS2 [id number] Specimen: [id number] Received: 10/16/18914 Spec Type: GALLBLADDE TISSUES 1 TISSUES: Gallbladder, NOS GROSS DESCRIPTION Received is one container labeled with the patient's name and designated gallbladder. The specimen consists of a gallbladder measuring 13.5 x 3 x 3 cm. The external surface is smooth and glistening. Focally, it is granular, hemorrhagic and contains cautery artifact. The lumen of the gallbladder contains greenish mucoid bile and multiple yellow calculi ranging in size from 0.5 to 2 cm. The gallbladder mucosa is bile-stained and without any mass lesions. The gallbladder wall averages 0.1 cm in thickness and is free of mass lesions. Direct Marketing Coordinator sections of the gallbladder and the cystic duct are submitted in one cassette. / AM:josselyn 10/16/18 TC:3 CPT: 42744 HEADER OPERATION: Laparoscopic cholecystectomy with IOC PRE-OP DIAGNOSIS: Cholelithiasis, cholecystitis TISSUE SUBMITTED: Gallbladder and contents MICROSCOPIC DESCRIPTION Slides are reviewed. MICROSCOPIC DIAGNOSIS Gallbladder, cholecystectomy: Chronic cholecystitis and cholelithiasis. AM:josselyn 10/17/18 Signed Kvng Flor, 10/17/18 <signature on file> Performed By: #### PGALL #### [facility] [address] [facility] [place], [address] CHOLANGIOGRAM/ O Observed: 10/16/2018 Status: F Source: [place] R,INITIAL 7:39 AM [facility]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 [id number] Primary XIOMY R [place] Insurance:MAYAE JUANJOSEDOB: [facility] [id number] Hospital 31287Rgq: (330) PLANPolicy Number: Repository [phone] () [id number] Date:4432-48-36ZS [address] [place] [address] 15512KW: 10/16/2018 Secondary NOT GIVENUNK [place] Insurance:SELF PAY [facility] Number: Effective Repository Date:2018-10-16 10/01/2018 XIOMY Nj [id number] Primary XIOMY R [place] Insurance:MAYAE JUANJOSEDOB: [facility] [id number] Hospital 81288Mkg: (330) PLANPolicy Number: Repository [phone] () [id number] Date:1952-27-74[address] [address]FH: 10/01/2018 Secondary NOT GIVENUNK [place] Insurance:SELF PAY [facility] Number: Effective Repository Date:2018-09-25 09/27/2018 XIOMY [id number] Primary XIOMY R [place] Insurance:DUNCAN CUMMINGSB: [facility] [id number] Hospital [address]27[address]Zoo: (330) PLANPolicy Number: Repository [phone] () [id number] Date:5102-04-14VL [address] [place] [address] 99601JN: 09/27/2018 Secondary NOT GIVENUNK [place] Insurance:SELF PAY [facility] Number: Effective Repository Date:2018-09-27 08/28/2018 XIOMY CUMMINGSB: Primary [facility] Insurance:DUNCAN CUMMINGS: [facility] [id number] Repository [place] Number: Cyrus DAVID [id number] [place] [email or web address] [facility]: Date:2018-08-28 18008Uws: [phone] [id number] (HP)Tel: ([phone]) Name:XPO John () () [address] [place], [place] [address] [phone] (WJ) [address]WP: 08/02/2018 XIOMY [id number] Primary XIOMY R [place] Insurance:DUNCAN CUMMINGSB: [facility] [id number] Hospital 78877Unf: ([phone]) PLANPolicy Number: Repository [phone] [id number] Date:2430-47-49GG [address] [address]AL: 08/02/2018 Secondary NOT GIVENUNK [place] Insurance:SELF PAY [facility] Number: Effective Repository Date:2018-08-02 08/02/2018 XIOMY Nj [id number] Primary XIOMY R [place] Insurance:BUCKEYE JUANJOSEDOB: [facility] [id number] Hospital 476[address]Flv: (330) PLANPolicy Number: Repository [phone] [id number] Date:3060-21-70KT [address] [place], [place] [address] [address]RG: 08/02/2018 Secondary NOT GIVENUNK [place] Insurance:SELF PAY [facility] Number: Effective Repository Date:2018-08-02 07/30/2018 XIOMY Clem [id number] Primary XIOMY R [place] Insurance:MAYAE JUANJOSEDOB: [facility] [id number] Hospital [address]Equ: (330) PLANPolicy Number: Repository [phone] [id number] Date:3025-49-23LK [address] [place] [address] 05859VT: 07/30/2018 Secondary NOT GIVENUNK [place] Insurance:SELF PAY [facility] Number: Effective Repository Date:2018-07-30 07/23/2018 XIOMY [id number] Primary XIOMY JUANJOSEDOB: [place] Insurance:MAYA [id number] [address]Wtd: (330) PLANPolicy Number: Repository [phone] [id number] Date:1318-14-27CB [address] [place] [address] 811[address]WC: 07/23/2018 Secondary NOT GIVENUNK [place] Insurance:SELF PAY [facility] Number: Effective Repository Date:2018-07-23 07/17/2018 XIOMY [id number] Primary XIOMY JUANJOSEDOB: [place] Insurance:MAYA [id number] [address]Ojm: (330) PLANPolicy Number: Repository [phone] [id number] Date:4958-96-07SY [address] [facility] CenterSandraBO[facility] N[facility] [place] [address]WH: 07/17/2018 Secondary NOT GIVENUNK [place] Insurance:SELF PAY [facility] Hospital Number: Effective Repository Date:2018-07-17 03/21/2018 ALONZO BULL Primary XIOMY JUANJOSEDOB: [place] [id number] [place] Insurance:[place] [id number] [address]Tel: (330) PLANPolicy Number: Repository 317 () [id number] Date:7690-38-66BR [address] [place] [address]HW: 03/21/2018 Secondary NOT GIVENUNK [place] Insurance:SELF PAY [facility] Hospital Number: Effective Repository Date:2018-03-21 02/14/2018 ALONZO BULL Primary XIOMY DAVISDOB: [place] [id number] [place] Insurance:[place] [id number] [place] [id number]: (330) PLANPolicy Number: Repository 317 () [id number] Date:2525-95-65TO [address] [place] [address] 35742QC: 02/14/2018 Secondary NOT GIVENUNK [place] Insurance:SELF PAY [facility] Hospital Number: Effective Repository Date:2018-02-14 12/12/2017 XIOMY R JUANJOSEDOB: Primary [facility] W Insurance:[place] JUANJOSERED [facility]: [facility] [id number] Repository [place] Number: Cyrus HERNANDEZ [id number] FOR[facility]LY [facility]ITALWest[place], [place] [email or web address]: Date:2017-12-12 378[address]Kih: [phone] [id number] [phone] ()Tel: ([phone]) Name:[address] () (WP) 5[address]JAYDEN Schulz [phone] (WP) [phone]:
== END 2018-10-16 18:25 | disposition home or self-care (01) ==
LOC: ED 22:09 → MS2 10-16 00:14
PROVIDERS: Emergency Medicine; Admitting Provider Surgery; Emergency Provider Emergency Medicine; Visit Provider Surgery
PROC: (CPT 47610; principal; 2018-10-16 07:40)
DX: K80.12 Calculus of gallbladder with acute and chronic cholecystitis without obstruction (principal); M19.90 Unspecified osteoarthritis, unspecified site
CPT/HCPCS: 47563; 36415; 74300; 76000; 76705; 80048; 80053; 80076; 81001; 81025; 83690; 85025; 88304; 93005; 96361; 96365; 96375; 96376; 99218; 99284; J7030; A4216; G0378; J2405

== ENCOUNTER → 2019-08-26 13:30 | Outpatient (CLI) | payer MEDICAID, SELFPAY ==
[2018-10-16 06:53] VITALS: BMI 30.8
[2019-08-27 13:39] LABS: Chlamydia Trachomatis by PCR Negative (Negative); Neisserai gonorrhoeae by PCR Negative (Negative); Probe Check PASS; Sample Adequacy Control PASS; Specimen Processing Control PASS
[2019-09-03 11:50] LABS: HPV APTIMA, High Risk Negative (Negative)
[2019-09-03 15:58] LABS: HPV Reflexed? YES, CHARGE PATIENT
== END ==
PROVIDERS: Visit Provider Obstetrics & Gynecology
DX: Z12.4 Encounter for screening for malignant neoplasm of cervix (principal); Z11.3 Encounter for screening for infections with a predominantly sexual mode of transmission
CPT/HCPCS: 87491; 87591; 87624; 88175; G0145

== ENCOUNTER 2019-11-01 20:11 | Emergency (ER) | payer MEDICAID, SELFPAY ==
[2018-10-16 06:53] VITALS: BMI 30.8
[2019-11-01 20:12] VITALS: BP 119/77; PULSE 85; RESP 16; TEMP 37.1; O2SAT 100; BMI 32.5
[2019-11-01 20:20] VITALS: O2SAT 100
--- NOTE | 2019-11-01 20:26 | EKG12_ITS ---
Test Reason : SOB Blood Pressure : / mmHG Vent. Rate : 069 BPM Atrial Rate : 069 BPM P-R Int : 126 ms QRS Dur : 086 ms QT Int : 388 ms P-R-T Axes : 026 047 038 degrees QTc Int : 415 ms Normal sinus rhythm Normal ECG Confirmed by JANETH GEORGE, MICHAEL ([id number]), scientific editor ANTONIETA NICOLE ([id number]) on 11/04/2019 8:49:37 AM Referred By: CELESTINE Confirmed By:MICHAEL FOWLER MD
--- NOTE | 2019-11-01 20:26 | ED.VISSUMM ---
- ER Visit Summary Date of Service: 11/01/19 Chief Complaint: Chest pain and shortness of breath History of Present Illness: The patient is a 29 F has no history of heart murmur. Patient states for 2 - 3 days she has had chest discomfort with shortness of breath. And sometimes is worse with deep breathing. There is some mild chest wall discomfort. She denies fever or chills. No significant cough. No hemoptysis. She is never had a DVT or PE. There is no family history of clotting disorder or blood clots. She has had no recent travel, surgery or immobilization. She has not been in the hospital recently. She has no calf pain or swelling. Physical Examination: Female no acute distress vital signs stable afebrile. Pulse ox 100% on room air no signs hypoxia. H EENT exam normal. Neck nontender no JVD no lymphadenopathy. Lungs clear to auscultation bilaterally. Heart regular rhythm no murmur. Chest wall mild sternal tenderness. No ecchymosis or bruising no subcu air crepitance. Abdomen soft nontender normal bowel sounds no peritoneal signs. Extremities moves all 4. Calves nontender without edema or cords. Normal radial pulses. Back nontender. Neurologically she is awake and alert with no focal motor deficits. Test Results: Chest x-ray 2 views read by myself the radiologist no acute abnormality. Normal cardiac silhouette and mediastinum. Normal lungs bilaterally. EKG sinus rhythm rate of 69 no acute signs of MT or ischemia. No S1Q3T3. CBC normal. Chemistries unremarkable. Normal creatinine gap. Troponin normal. D-dimer less than 0.27. Emergency Department Course and Treatment: Patient with chest pain some what reproducible. She will undergo a cardiac work-up which clinically I do not think this is her heart. She also has no significant risk factors for PE. Repeat exam at 2215 patient is doing well. However all test results. She will be discharged home. Treatment Plan: Tylenol and/or Motrin for pain. Follow-up with her doctor if not improving. Disposition: Discharge Impression: Chest pain and dyspnea secondary to musculoskeletal etiology This note was generated with [employer] dictation software. It may contain incorrect words, spelling, and punctuation that were not noted in review of the chart prior to signing ED Disposition - Plan for ED Patient: Referrals: Care Physician,No Primary [Primary Care Provider] -
[2019-11-01 20:47] VITALS: O2SAT 98
[2019-11-01 20:53] LABS: Absolute Lymphocyte Count 2.78 X10^3/uL (0.83-4.51); Absolute Neutrophil Count 5.8 X10^3/uL (2.0-7.7); Basophil# 0.06 X10^3/uL; Basophil% 0.6 % (0-1); Eosinophil# 0.19 X10^3/uL; Hematocrit 38.4 % (37-47); Lymphocyte # 2.78 X10^3/ul (4.0); Lymphocyte % 28.6 % (19-41); Mean Corp Hgb Conc 33.9 g/dL (32-36); Mean Corpuscular Hgb 30.1 pg (27.0-32.0); Mean Corpuscular Volume 88.9 fL (81-99); Mean Platelet Vol. 10.1 fl (6.2-12.0); Monocyte# 0.83 X10^3/uL; Monocyte% 8.5 % (0-10); NRBC Flagged by Analyzer 0 % (0-5); Neutrophil # 5.82 X10^3/uL (2.7-7.7); Neutrophil % 59.8 % (47-70); Platelet Count 304 K/mm3 (150-450); RBC Distribution Width CV 12.3 % (11.6-14.6); RBC Distribution Width SD 40.5 fl (35.1-43.9); Red Blood Count 4.32 M/mm3 (4.2-5.4); White Blood Count 9.7 K/mm3 (4.4-11.0)
--- NOTE | 2019-11-01 20:54 | RAD_ITS ---
STUDY: X-RAY CHEST REASON FOR EXAM: Female, 29 years old. Sob TECHNIQUE: PA and lateral views of the chest. COMPARISON: None. FINDINGS: EKG leads overlie the chest The lungs are clear and expanded. There is no demonstrated pleural abnormality. Normal size heart. Normal mediastinum and hang. Normal visualized pulmonary arteries. Normal visualized aortic arch and descending thoracic aorta. Normal visualized thoracic spine. Normal visualized ribs, clavicles, and shoulders. There is no demonstrated abnormality of the visualized soft tissue structures of the upper abdomen. RAD/Chest PA and Lateral IMPRESSION: Normal x-ray examination of the chest. Electronically Signed: Jontahan Becerril MD at 21:07 EST , Service support ,
[2019-11-01 21:08] LABS: Anion Gap 6 (5-15); BUN 24 mg/dL (7-18); BUN/Creat Ratio 28.2 RATIO (10-20); Calcium,Total 9.2 mg/dL (8.5-10.1); Chloride 110 mmol/L (98-107); Creatinine, Serum 0.85 mg/dL (0.55-1.02); EST Glomerular Filtration Rate 83 mL/min (>60); Est Glom Filt Rate - Afr Amer 100 mL/min (>60); Estimated Creatinine Clearance 76.54 ml/min; Glucose 87 mg/dL (74-106); Potassium 3.5 mmol/L (3.5-5.1); Sodium Level 139 mmol/L (136-145)
[2019-11-01 21:36] LABS: D-Dimer Quantitative (DVT/PE) < 0.27 FEU/ug/m (0.27-0.49)
--- NOTE | 2019-11-01 22:19 | ED.DEP ---
ED Disposition - Plan for ED Patient: Disposition: Home or Assisted Living Instructions: CHEST WALL PAIN, Costochondritis Referrals: Alok Anders MD [STAFF PHYSICIAN] - 1 Week if not improving Additional Instructions: Your work-up is unremarkable. The pain is consistent with chest wall pain. Motrin for pain and inflammation. This should progressively improve over the next several days. Follow-up if not improving. Return to ER feeling worse.
[2019-11-01 22:30] VITALS: BP 104/65; PULSE 75; RESP 12; O2SAT 98
== END 2019-11-01 22:32 | disposition home or self-care (01) ==
PROVIDERS: Emergency Provider Emergency Medicine
DX: R07.89 Other chest pain (principal); R06.00 Dyspnea, unspecified
CPT/HCPCS: 71046; 80048; 84484; 85025; 85379; 93005; 99285; A4216

== ENCOUNTER 2019-12-06 08:20 | Emergency (ER) | payer MEDICAID, SELFPAY ==
[2019-12-06 08:21] VITALS: BP 156/98; PULSE 78; RESP 16; TEMP 36.6; O2SAT 100; BMI 32.9
--- NOTE | 2019-12-06 08:35 | ED.VIS.GEN ---
History of Present Illness Chief Complaint: Ear Problem Detail of Chief Complaint: Right ear pain, blurred vision right and right-sided headache Informant: Patient Onset: Days Context: Gradual Onset Timing: Intermittent Quality: Throbbing and pain right side of head pain right ear Location: Right side Current Severity: Mild Maximum Severity: Moderate Worsened by: Nothing Relieved by: Nothing Associated Symptoms: Visual changes noted with headache Narrative: Patient is a 29-year-old woman who presents with unilateral headache and unilateral blurred vision with ear pain and drainage on the right as well. She denies fever, chills or night sweats. She denies decreased hearing or ringing or ears. She does complain of neck discomfort. She denies neck stiffness. She denies photophobia or sonophobia. She denies vomiting. She denies rash. She does see floaters. There is no pain associated with the floaters. There is no history of trauma. There is no alleviating, exacerbating or precipitating factor. There is no family history of migraine headaches. There is no history of subarachnoid hemorrhage or aneurysm. Prior similar symptoms: No Recent Illness/Hospitalization: No - Past Medical History (1) Murmur Status: Acute (2) Low iron Status: Chronic Past Medical History - Allergies and Home Meds Allergies/Adverse Reactions: Allergies ibuprofen [From Advil] Adverse Reaction (Verified 12/06/19 08:23) Other Primary Care Physician: Care Physician,No Primary [Primary Care Provider] - Prior records reviewed: Yes Surgical History: - - Lives: With Family Smoking Status: Never smoker Alcohol: None Drugs: None Review of Systems General: Denies: Chills, Fever, Malaise, Sweats Eyes: Reports: Blurred vision - right. Denies: Visual changes - bilaterally, Blurred vision - left, Diplopia ENT: Reports: Right ear pain. Denies: Left ear pain, Rhinorrhea, Sore throat Cardiovascular: Denies: Chest pain, Palpitations Respiratory: Denies: Dyspnea, Cough, Dyspnea on exertion Gastrointestinal: Denies: Abdominal pain, Nausea, Vomiting, Diarrhea, Melena, Hematochezia Genitourinary: Denies: Dysuria, Hematuria, Frequency Musculoskeletal: Reports: Neck pain. Denies: Myalgias, Arthralgias, Back pain, Swelling, Extremity Pain, -, - Skin: Denies: Rash, Wounds Neurological: Reports: Headache. Denies: Weakness, Parasthesia, Numbness Hematologic: Denies: Easy bruising, Easy bleeding Physical Exam Vital Signs/Narrative: Vital Signs Temp Pulse Resp BP Pulse Ox 12/06/19 08:21 97.8 F 78 16 156/98 H 100 Inital Vital Signs reviewed: Yes General: Well nourished, Well developed, Obese, No Acute Distress Head: Normocephalic, Atraumatic Eyes: Perrl, EOMI, - - There is no APD. Cup-to-disc ratio is normal. There is no papilledema. Venous pulsations noted bilaterally. Visual acuity is 2012 right eye, 20/15 left eye and 2012 both eyes.. Negative for: Pale conjunctiva, Scleral icterus ENT: Moist mucous membranes, No rhinorrhea, TM's clear, Sinus tenderness, - - There are no lesions noted in the ear to suggest Jennifer Ferrara syndrome.. Negative for: Dry mucous membranes, Nasal congestion Neck: Supple, Nontender, No lymphadenopathy, No JVD Cardiovascular: Regular rate, Regular rhythm, No murmurs, Normal S1, Normal S2 Respiratory: No distress, CTA bilaterally, Chest nontender Abdomen: Soft, Nontender, Nondistended, Normal bowel sounds, No masses Back: Normal Inspection Extremities: Nontender, No edema Skin: Normal color, No rash, No Trauma. Negative for: Cyanosis, Diaphoresis, Jaundice Neurological: Alert, Oriented x3, Cranial nerves II-XII grossly intact, Normal Strength, Normal Sensation, Normal DTR, Normal Gait, - - Judd testing is normal. Diagnostic/Tx/Re-eval - Medical Decision Making Since the blurred vision is unilateral and associated with headache suspect ocular migraine. Will assess visual acuity. There is no change in vision. Neuro exam is normal. There is no meningeal findings. We will treat for vascular headache. Will reassess after medication has been given. She was reassessed at 1200. She is sitting up smiling no discomfort. Her symptoms have resolved. ED Disposition - Plan for ED Patient: Disposition: Home or Assisted Living Diagnosis: Ocular migraine with status migrainosus, not intractable Instructions: ED, Migraine (Classical) Referrals: Care Physician,No Primary [Primary Care Provider] - 1 Week Additional Instructions: Follow-up with the doctor you were assigned to by your [facility], [facility].
[2019-12-06] MEDS: Metoclopramide 10 MG/2 ML Vial IV (08:47)
[2019-12-06] MEDS: Ketorolac 30 MG/ML Syringe 15 MG IV (08:48)
[2019-12-06] MEDS: DiphenhydrAMINE 50 MG/ML Syringe 25 MG IV (08:48)
[2019-12-06 09:58] VITALS: BP 105/69; PULSE 70; RESP 16; O2SAT 100
[2019-12-06 12:00] VITALS: RESP 16
== END 2019-12-06 12:11 | disposition home or self-care (01) ==
PROVIDERS: Emergency Provider Emergency Medicine
DX: G43.101 Migraine with aura, not intractable, with status migrainosus (principal); E66.9 Obesity, unspecified
CPT/HCPCS: 96374; 96375; 99284; A4216

== ENCOUNTER → 2020-01-21 08:24 | Outpatient (CLI) | payer MEDICAID, SELFPAY ==
[2020-01-21 08:13] VITALS: BMI 32.9
--- NOTE | 2020-01-21 08:25 | RAD_ITS ---
STUDY: X-RAY CHEST REASON FOR EXAM: Female, 29 years old. CHEST HEAVINESS/TIGHTNESS, NO COUGH, FEVER TECHNIQUE: PA and lateral views of the chest. COMPARISON: Comparison is made with prior study dated November 01, 2019. FINDINGS: The lungs are clear and expanded. Scattered calcified granulomas. There is no demonstrated pleural abnormality. Normal size heart. Normal mediastinum and hang. Normal visualized pulmonary arteries. Normal visualized aortic arch and descending thoracic aorta. Normal visualized thoracic spine. Normal visualized ribs, clavicles, and shoulders. There is no demonstrated abnormality of the visualized soft tissue structures of the upper abdomen. RAD/Chest PA and Lateral IMPRESSION: Normal x-ray examination of the chest. Electronically Signed: Omega Chowdhury, at 8:48 EDT , Service support ,
== END ==
PROVIDERS: Referring Provider Physician Assistant; Visit Provider Physician Assistant
DX: R07.89 Other chest pain (principal)
CPT/HCPCS: 71046

== ENCOUNTER 2020-05-05 15:23 | Emergency (ER) | payer MEDICAID, SELFPAY ==
[2020-01-21 08:13] VITALS: BMI 32.9
[2020-05-05 15:25] VITALS: BP 124/86; PULSE 88; RESP 15; TEMP 36.7; O2SAT 98; BMI 33.9
--- NOTE | 2020-05-05 15:48 | ED.VIS.FEGU ---
History of Present Illness Chief Complaint: Female C/O Informant: Patient Pain: Vaginal Pain Onset: Days - 2- Context: Gradual Onset Timing: Continuous Quality: - - pulling, discomfort Current Severity: Moderate Maximum Severity: Moderate Worsened by: - - nothing but hasn't tried intercourse Relieved by: - - nothing. hasn't tried any meds. Issue: Vaginal bleeding. Negative for: Passing clots, Passing tissue Onset: Days - 2- Timing: Intermittent Current Severity: Spotting Maximum Severity: Spotting - Vaginal Discharge Quality: - - no vag discharge Associated Symptoms: Negative for: Dysuria, Frequency, Urgency Last known menstrual period: 2.5 wks ago; usually regular, lasted 1 week Test: - - s/p BTL Sexually: Active, Single Partner Control: BTL Narrative: Patient states she has had vaginal discomfort that is not going into her abdomen but radiates into her mid low back a little. No fevers or systemic symptoms. Some vaginal spotting but no other discharge. No high suspicion for or known exposure to STD but she does have one single sexual partner. Past Medical History - Allergies and Home Meds Allergies/Adverse Reactions: Allergies ibuprofen [From Advil] Adverse Reaction (Verified 05/05/20 15:24) Other IT DROPPED MY PLATELETTS OFF Primary Care Physician: Care Physician,No Primary [Primary Care Provider] - Past Medical History: None Surgical History: - - , bilateral tubal ligectomy Smoking Status: Former smoker Review of Systems General: Denies: Chills, Fever, Sweats Eyes: Denies: Visual changes - bilaterally, Diplopia ENT: Denies: Rhinorrhea, Sore throat Cardiovascular: Denies: Chest pain, Palpitations Respiratory: Denies: Dyspnea, Cough, Dyspnea on exertion Gastrointestinal: Denies: Abdominal pain, Nausea, Vomiting, Diarrhea, Melena, Hematochezia Genitourinary: Reports: - - vag spotting. no discharge. vaginal discomfort.. Denies: Dysuria, Hematuria, Frequency Musculoskeletal: Reports: Back pain. Denies: Extremity Pain Skin: Denies: Rash, Wounds Neurological: Denies: Headache, Weakness, Numbness Physical Exam Vital Signs/Narrative: Vital Signs Temp Pulse Resp BP Pulse Ox 05/05/20 15:25 98.0 F 88 15 124/86 H 98 Inital Vital Signs reviewed: Yes General: Well nourished, Well developed, - - Well-appearing, NAD Head: Normocephalic, Atraumatic Eyes: Perrl, EOMI ENT: Moist mucous membranes, No rhinorrhea Neck: Supple, Nontender Cardiovascular: Regular rate, Regular rhythm, No murmurs Respiratory: No distress, CTA bilaterally, Chest nontender Abdomen: Soft, Nontender, Nondistended, Normal bowel sounds Back: Nontender, Normal Inspection. Negative for: CVA tenderness Extremities: Nontender, No edema Skin: Normal color, No rash, No Trauma Neurological: Alert, Oriented x3, Cranial nerves II-XII grossly intact, Normal Strength, Normal Sensation, Normal Gait Psychological: Normal affect, Normal Mood Diagnostic/Tx/Re-eval Laboratory Results 05/05/20 05/05/20 05/05/20 15:35 15:35 15:35 Urine Color Yellow Urine Clarity Clear Urine pH 6.0 Ur Specific [place] 1.020 Urine Protein Negative Urine Glucose (UA) Normal Urine Ketones Negative Urine Occult Blood Negative Urine Nitrite Negative Urine Bilirubin Negative Urine Urobilinogen Normal Ur Leukocyte Esterase Negative Urine RBC 0 SEEN Urine WBC 0 SEEN Ur Squamous Epith Cells 0-5 SEEN Urine Bacteria RARE Urine Mucus 0 SEEN Urine Test Negative Chlam trachomat DNA PCR Negative N.gonorrhoeae DNA (PCR) Negative - Treatment/Re-Evaluation Treatment: - - ibuprofen - Medical Decision/Diagnostic Studies GC and Chlamydia cultures sent: Yes - neg Urinalysis and negative. Wet prep was sent, it shows no trichomonas and 5-10 white blood cells, no clues noted. Her pelvic exam is very benign and does not appear to show any signs of infection in her vaginal vault or cervix. For this reason I would not necessarily treat her with any antibiotics especially since her GC and chlamydia came back while in the emergency department negative. She is comfortable following up with her OB, I suspect that the etiology of the dysfunctional uterine bleeding is uterine but I do not think an ultrasound will necessarily help differentiate that right now. If her bleeding becomes worse especially if it is a pad an hour for any significant period of time, I recommend coming back at which point an ultrasound may or may not be helpful. She understands all this and will follow-up with her OB. ED Disposition - Plan for ED Patient: Disposition: Home or Assisted Living Diagnosis: Dysfunctional uterine bleeding Instructions: ED Bleed Irregular Vaginal Referrals: Cooper May MD [STAFF PHYSICIAN] - Keep Karina appointment (or sooner if worsening)
[2020-05-05 15:56] LABS: Mucous, Urine 0 SEEN /hpf (<or=2+); Red Blood Cells-Urine 0 SEEN /hpf (0-5); White Blood Cells 0 SEEN /hpf (0-5)
[2020-05-05 16:01] LABS: Internal QC Validated? YES +Cl - CLEAR BKGD; Pregnancy, Urine Negative Negative
[2020-05-05 16:06] LABS: Color, Urine Yellow (Yellow); Glucose, Dipstick Normal (Normal); Ketone-Dipstick Negative (Negative); Leukocyte Esterase-Dipstick Negative /ul (Negative); Nitrite-Dipstick Negative (Negative); Occult Blood-Urine Negative /ul (Negative); Protein-Dipstick Negative (Negative); Urine Bilirubin Dipstick Negative (Negative); Urine Clarity Clear (Clear); Urine Urobilinogen Normal (Normal)
[2020-05-05 16:28] LABS: Bacteria RARE /hpf (None Seen); Squamous Epithelial Cells - UA 0-5 SEEN /hpf (5-10)
[2020-05-05 17:24] VITALS: BP 118/80; PULSE 67; RESP 18; O2SAT 97
[2020-05-05 17:37] LABS: Chlamydia Trachomatis by PCR Negative (Negative); Neisserai gonorrhoeae by PCR Negative (Negative); Probe Check PASS; Sample Adequacy Control PASS; Specimen Processing Control PASS
[2020-05-05 18:21] VITALS: BP 118/80
== END 2020-05-05 18:44 | disposition home or self-care (01) ==
PROVIDERS: Emergency Provider Emergency Medicine
DX: N93.8 Other specified abnormal uterine and vaginal bleeding (principal); Z87.891 Personal history of nicotine dependence
CPT/HCPCS: 81001; 81025; 87210; 87491; 87591; 99282

== ENCOUNTER 2021-11-07 20:50 | Emergency (ER) | payer MEDICAID, SELFPAY ==
[2021-11-07 20:51] VITALS: BP 119/78; PULSE 81; RESP 18; TEMP 35.9; O2SAT 98; BMI 34.9
--- NOTE | 2021-11-07 21:15 | EKG12_ITS ---
Test Reason : CP Blood Pressure : / mmHG Vent. Rate : 079 BPM Atrial Rate : 079 BPM P-R Int : 116 ms QRS Dur : 086 ms QT Int : 374 ms P-R-T Axes : 013 047 032 degrees QTc Int : 428 ms Normal sinus rhythm Normal ECG Confirmed by THAIS GEORGE, ROLAND ([id number]), design editor DONNA DAVEY ([id number]) on 11/08/2021 2:16:53 PM Referred By: TREY Confirmed By:ROLAND PLASCENCIA MD
--- NOTE | 2021-11-07 21:16 | EDS_ITS ---
HPI History of Present Illness Chief Complaint: Chest Pain Narrative Narrative: Patient presents with her mother because of chest pain and heart palpitations that she has had intermittently since Sunday, 2 days ago. She has had problems with palpitations in the past but does not take any medication for it. She does not take daily medication such as control pills. She states that she began having fast, pounding heart rate and sometimes it feels like it skipping a beat. Today, when she walked up the stairs from doing laundry, she felt as if she had worked out. She experienced midsternal chest pain that radiated to her back. She denies any nausea or vomiting. No diapho resis. She may have felt slightly short of breath. She does have history of a heart murmur and a leaky valve but states that that does not bother her. She called her division merchandise manager office, Dr. Douglas, but is unable to be seen until December. She was concerned because of the palpitations and the chest pain along with shortness of breath on exertion. [facility] Medical History (Updated 11/07/21 @ 22:45 by Montrell Campbell MD) Arthritis Chest pain Low iron Murmur neck/back pain Shortness of breath Home Medications multivitamin 1 ea PO DAILY 05/05/20 [History Last Taken Unknown] Allergy/AdvReac Type Severity Reaction Status Date / Time ibuprofen [From Advil] AdvReac Other Verified 05/05/20 15:24 Family History Mother Arthritis Dizziness Back pain Surgical History History of History of dilatation and curettage History of laparoscopic cholecystectomy (10/16/18) History of tubal ligation Social History Smoking Status: Former smoker alcohol intake: never ROS ROS ED ROS Narrative Constitutional: No fever, no chills. HEENT: No sore throat. No neck pain. No loss of vision. No rhinorrhea. Cardiovascular: Positive chest pain, midsternal radiating to back. Positive palpitations. No pedal edema. Respiratory: No cough, no shortness of breath. Positive dyspnea on exertion. Abdominal: No abdominal pain. No nausea. No vomiting. Genitourinary: No dysuria. No hematuria. Musculoskeletal: No myalgias. No arthralgias. Neurologic: No headaches. No dizziness. No lightheadedness. Skin: No rash. No change in color. Psychiatric: No depression. No anxiety. EXAM Physical Exam Narrative Exam Narrative: Afebrile. Vital signs noted. HEENT: Normocephalic. Atraumatic. PERRL, EOMI. Neck soft and supple. No point tenderness or step off. Cardiovascular: Regular rate and rhythm. No murmurs, rubs, or gallops appreciated. Respiratory: No tachypnea. Lungs clear to auscultation bilaterally. Gastrointestinal: Abdomen soft, nontender, with normoactive bowel sounds. No rebound or guarding. Neurological: Awake. Alert. Nonfocal, nonlateralizing. Skin: No rash. Normal color. No pallor. Musculoskeletal: No pedal edema. Full range of motion extremities. Const Vital Signs: 11/07/21 20:51 11/07/21 21:18 11/07/21 22:00 Temperature 96.7 F L 98.1 F Temperature Source Temporal Temporal Pulse Rate 81 74 Respiratory Rate 18 17 Respiratory Effort Normal Blood Pressure 119/78 Blood Pressure Mean 91 Pulse Ox 98 98 Oxygen Delivery Method Room Air Room Air Heart Score History: Slightly/Non-Suspicious ECG: Normal Age: </= 45 years Risk Factors: No Risk Factors Troponin: >/=3 x Normal Limit Score: 2 MDM MDM MDM Narrative Medical decision making narrative: Comprehensive work-up was pursued. Her EKG demonstrates normal sinus rhythm at 79 bpm without ectopy or acute ST changes. I will obtain a chest x-ray, basic laboratory work and troponin including D- dimer. CBC shows WBC count slightly elevated 11.9 which I think is nonspecific. Normal hemoglobin at 12.5. Platelet count normal at 332. Her electrolyte panel was grossly unremarkable. High-sensitivity troponin normal at 4. D-dimer normal at 0.29. As she has a low heart score, at this point in time she accepts the 2% risk of major coronary artery event in the next 6 weeks. I feel she be discharged safely home with follow-up. I spoke with her and her mother about following up with her primary care physician or with cardiology to wear Holter monitor. She states she has an appointment with her division merchandise manager in early December, approximately a month and a half from now. She will see if there are any cancellations. At this point in time she will be discharged to follow-up. Return instructions reviewed. Disposition is discharged home in stable condition. Lab Data Attestation: I reviewed the patient's lab results. Labs: Laboratory Results - last 24 hr 11/07/21 11/07/21 11/07/21 21:07 21:07 21:07 WBC 11.9 H RBC 4.38 Hgb 12.5 Hct 37.6 MCV 85.8 MCH 28.5 MCHC 33.2 RDW Std Deviation 39.8 RDW Coeff of Bill 12.8 Plt Count 332 MPV 10.4 Immature Gran % (Auto) 0.500 Neut % (Auto) 67.9 Lymph % (Auto) 22.1 [place] % (Auto) 7.0 Eos % (Auto) 1.9 Baso % (Auto) 0.6 Absolute Neuts (auto) 8.1 H Absolute Lymphs (auto) 2.63 Nucleated RBC % 0 D-Dimer Quant (PE/DVT) Cancelled Sodium 141 Potassium 3.8 Chloride 107 Carbon Dioxide 24.0 Anion Gap 10 BUN 15 Creatinine 0.73 Estim Creat Clear Calc 87.50 Est GFR (MDRD) Af Amer 118 Est GFR (MDRD) Non-Af 98 BUN/Creatinine Ratio 20.5 H Glucose 103 Calcium 9.0 Troponin I High Sens 4 11/07/21 21:40 WBC RBC Hgb Hct MCV MCH MCHC RDW Std Deviation RDW Coeff of Bill Plt Count MPV Immature Gran % (Auto) Neut % (Auto) Lymph % (Auto) [place] % (Auto) Eos % (Auto) Baso % (Auto) Absolute Neuts (auto) Absolute Lymphs (auto) Nucleated RBC % D-Dimer Quant (PE/DVT) 0.29 Sodium Potassium Chloride Carbon Dioxide Anion Gap BUN Creatinine Estim Creat Clear Calc Est GFR (MDRD) Af Amer Est GFR (MDRD) Non-Af BUN/Creatinine Ratio Glucose Calcium Troponin I High Sens Radiography Diagnostic Testing: Clinical Impression(s) from Imaging Studies Chest X-Ray 11/07/21 21:28 IMPRESSION: There are no acute findings. Electronically Signed: Gelacio Rocha MD at 21:45 EST , Service support , Discharge Plan Triage Chief Complaint: Chest Pain Other Complaint: Palpitations ED Provider: Montrell Campbell Dx/Rx/DC Orders Clinical Impression: Palpitations, Chest pain Instructions: ED Chest Pain, Uncertain Cause, ED Palpitations Prescriptions: No Action multivitamin 1 EACH tablet 1 ea PO DAILY RF: 0 Primary Care Provider: Care Physician,No Primary Referrals: Jimmy Douglas MD [STAFF PHYSICIAN] - Care Physician,No Primary [Primary Care Provider] - Disposition Disposition: Home, Self Care
[2021-11-07 21:18] VITALS: PULSE 74; RESP 17; TEMP 36.7; O2SAT 98
[2021-11-07] MEDS: 0.9% Normal Saline 1,000 ML 1000 ML IV (21:23)
[2021-11-07 21:24] LABS: Absolute Lymphocyte Count 2.63 X10^3/uL (0.83-4.51); Absolute Neutrophil Count 8.1 X10^3/uL (2.0-7.7); Basophil# 0.07 X10^3/uL; Basophil% 0.6 % (0-1); Eosinophil# 0.23 X10^3/uL; Eosinophils% 1.9 % (0-5); Hematocrit 37.6 % (37-47); Hemoglobin 12.5 g/dL (12.0-15.0); Lymphocyte # 2.63 X10^3/ul (0.83-4.51); Lymphocyte % 22.1 % (19-41); Mean Corp Hgb Conc 33.2 g/dL (32-36); Mean Corpuscular Hgb 28.5 pg (27.0-32.0); Mean Corpuscular Volume 85.8 fL (81-99); Mean Platelet Vol. 10.4 fl (6.2-12.0); Monocyte# 0.83 X10^3/uL; NRBC Flagged by Analyzer 0 % (0-5); Neutrophil % 67.9 % (47-70); Platelet Count 332 K/mm3 (150-450); RBC Distribution Width CV 12.8 % (11.6-14.6); RBC Distribution Width SD 39.8 fl (35.1-43.9); Red Blood Count 4.38 M/mm3 (4.2-5.4); White Blood Count 11.9 K/mm3 (4.4-11.0)
--- NOTE | 2021-11-07 21:28 | RAD_ITS ---
STUDY: X-RAY CHEST REASON FOR EXAM: Female, 31 years old. CHEST PAIN chest pain TECHNIQUE: XR Chest 1 View COMPARISON: 3.25.20 FINDINGS: There is no demonstrated pleural abnormality. Normal size heart. Normal mediastinum and hang. Normal visualized pulmonary arteries. Normal visualized aortic arch and descending thoracic aorta. Normal visualized thoracic spine. Normal visualized ribs, clavicles, and shoulders. There is no demonstrated abnormality of the visualized soft tissue structures of the upper abdomen. RAD/Chest 1 View (Portable) IMPRESSION: There are no acute findings. Electronically Signed: Gelacio Rocha MD at 21:45 EST , Service support ,
[2021-11-07 21:41] LABS: Anion Gap 10 (5-15); BUN 15 mg/dL (7-18); BUN/Creat Ratio 20.5 RATIO (10-20); Chloride 107 mmol/L (98-107); Creatinine, Serum 0.73 mg/dL (0.55-1.02); EST Glomerular Filtration Rate 98 mL/min (>60); Est Glom Filt Rate - Afr Amer 118 mL/min (>60); Glucose 103 mg/dL (74-106); Potassium 3.8 mmol/L (3.5-5.1); Sodium Level 141 mmol/L (136-145); Troponin-I HS 4 pg/mL (3.0-54.0)
[2021-11-07 22:03] LABS: D-Dimer Quantitative (DVT/PE) 0.29 FEU/ug/m (0.27-0.49)
--- NOTE | 2021-11-07 22:48 | ED.RN ---
1L NS is complete but cannot sign off on dec. There is nothing left and the 1L all went into patient. Tolerated well.
[2021-11-07 22:49] VITALS: BP 109/71; PULSE 76; RESP 17
== END 2021-11-07 23:00 | disposition home or self-care (01) ==
PROVIDERS: Emergency Provider Emergency Medicine; Visit Provider Emergency Medicine
DX: R07.9 Chest pain, unspecified (principal); R06.02 Shortness of breath; R00.2 Palpitations; Z87.891 Personal history of nicotine dependence
CPT/HCPCS: 71045; 80048; 84484; 85025; 85379; 93005; 96360; 99285; J7030; A4216

== ENCOUNTER 2021-11-13 19:01 | Emergency (ER) | payer MEDICAID, SELFPAY ==
[2021-11-13 19:02] VITALS: BP 134/74; PULSE 83; RESP 14; TEMP 36.2; O2SAT 94; BMI 34.7
--- NOTE | 2021-11-13 19:18 | ED.VIS.LOWEX ---
HPI History of Present Illness Chief Complaint: Lower Extremity Injury Narrative Narrative: 31-year-old female presenting with left lateral leg pain and left forearm pain. She states she has a history of DVT in the past. She states it was because she had some blood clotting disorder and her last DVT was about 5 years ago. Patient currently has COVID and is concerned she developed a DVT. She does not have chest pain and she states she is not short of breath. She states she is doing fine with the COVID thing. PFSH PFSH Medical History Arthritis Chest pain Low iron Murmur neck/back pain Shortness of breath Home Medications multivitamin 1 ea PO DAILY 05/05/20 [History Last Taken Unknown] Allergy/AdvReac Type Severity Reaction Status Date / Time ibuprofen [From Advil] AdvReac Other Verified 11/13/21 19:04 Family History Mother Arthritis Dizziness Back pain Surgical History History of History of dilatation and curettage History of laparoscopic cholecystectomy (10/16/18) History of tubal ligation Social History Smoking Status: Former smoker alcohol intake: never ROS ROS ED Constitutional Constitutional ED: Denies chills or fever(s) Eyes Eyes: Denies blurry vision or diplopia ENT ENT ED: Denies rhinorrhea or sore throat Cardiovascular Cardiovascular: Denies chest pain or palpitations Respiratory/Chest Respiratory/Chest: Reports cough; Denies dyspnea Gastrointestinal Gastrointestinal: Denies abdominal pain, nausea or vomiting Musculoskeletal Musculoskeletal: Reports other Details: Left arm and left leg pain Integumentary Denies rash Neurologic Neurologic: Denies headache(s) Psychiatric Psychiatric: Denies anxiety or depression EXAM Physical Exam Const Vital Signs: 11/13/21 19:02 Temperature 97.1 F L Temperature Source Temporal Pulse Rate 83 Respiratory Rate 14 Blood Pressure 134/74 H Blood Pressure Mean 94 Pulse Ox 94 Oxygen Delivery Method Room Air Positive well nourished General Appearance ED: NAD HEENT Reports moist mucous membranes normocephalic Eyes PERRL Resp normal respiratory effort and clear to auscultation bilaterally Cardio regular rate and regular rhythm Extremity Extremity Narrative: Tenderness to palpation over the left lateral aspect of the left calf. I do not feel any crepitance. There is no cords palpated. Compartments are soft. No bony tenderness. Tenderness to palpation over the left lateral forearm without any swelling, edema, crepitance. Psych mental status grossly normal Skin Lesions: no lesions Rashes: no rashes MDM MDM MDM Narrative Medical decision making narrative: Patient presenting for concern of DVT in her arm and leg. She is a history of DVT in the past. She states that she had a platelet abnormality at that time and she has not had DVT in least 5 years. Patient presented unfortunately too late in the evening on Sunday to get ultrasounds performed. I will order a left upper extremity and left lower extremity ultrasound for her tomorrow to be done. Based on her exam I do not think she needs weight-based Lovenox currently. She is not having chest pain. I believe she is stable for discharge at this time. Impression: 1. Left leg swelling 2. Left arm swelling Discharge Plan Triage Chief Complaint: Lower Extremity Injury ED Provider: Michael Crews Dx/Rx/DC Orders Instructions: ED Leg Spasm Prescriptions: No Action multivitamin 1 EACH tablet 1 ea PO DAILY RF: 0 Primary Care Provider: Care Physician,No Primary Referrals: Care Physician,No Primary [Primary Care Provider] - Disposition Disposition: Home, Self Care
== END 2021-11-13 19:27 | disposition home or self-care (01) ==
LOC: ED 19:26
PROVIDERS: Emergency Provider Student in an Organized Health Care Education/Training Program; Visit Provider Student in an Organized Health Care Education/Training Program
DX: M79.89 Other specified soft tissue disorders (principal); M79.632 Pain in left forearm; Z87.891 Personal history of nicotine dependence; Z86.718 Personal history of other venous thrombosis and embolism; R05.9 Cough, unspecified; M79.662 Pain in left lower leg
CPT/HCPCS: 99282

== ENCOUNTER 2021-11-14 14:50 | Outpatient (CLI) | payer MEDICAID, SELFPAY ==
--- NOTE | 2021-11-14 14:54 | VDLE_ITS ---
Reason For Study: Pain Procedure LEFT This is a venous duplex using B-mode, color GSV is normal. flow and spectral Doppler. CFV, FV and PopV are compressible. Exam performed in department. T/P Trunk is compressible. The exam was abbreviated due to the COVID 19 PTV is compressible. protocol. LT PerV is compressible. VL/Venous Duplex US, Unilateral Interpretation Summary Deep veins of the left lower extremity are patent and compressible segmentally. There is no evidence of left lower extremity deep vein thrombosis. The left great saphenous vein malachi ears patent and compressible segmentally. Ordering Physician: Michael Crews Performed By: Hillary Lennon RVT
--- NOTE | 2021-11-14 14:55 | VDUE_ITS ---
Reason For Study: Pain Left Proximal Left jugular vein is spontaneous, widely patent, phasic, with no intraluminal echogenicity noted. Left subclavian vein is spontaneous, widely patent, phasic, with no intraluminal echogenicity noted. Left Arm Left axillary vein is spontaneous, patent, phasic, competent, compressible and demonstrates augmentation. Left brachial vein is compressible. Left cephalic vein is compressible. Left basilic vein is compressible. Left Lower Arm Left radial vein is compressible. Left ulnar vein is compressible. VL/Venous Duplex US, Unilateral Interpretation Summary Deep veins of the left upper extremity are patent and compressible segmentally. There is no evidence of deep vein thrombosis. The superficial veins of the left upper extremity, the basilic and cephalic veins, are patent and compressible. There is no evidence of left upper extremit y superficial thrombophlebitis involving the veins imaged. Ordering Physician: Michael Crews Performed By: Hillary Lennon RVT ?
== END 2021-11-14 23:59 | disposition short-term general hospital (02) ==
PROVIDERS: Referring Provider Student in an Organized Health Care Education/Training Program; Visit Provider Student in an Organized Health Care Education/Training Program
DX: M79.602 Pain in left arm (principal); M79.605 Pain in left leg
CPT/HCPCS: 93971

== ENCOUNTER 2022-02-01 12:17 | Outpatient (CLI) | payer MEDICAID, SELFPAY | END 2022-02-01 23:59 | disposition home or self-care (01) | LOC: PSN 12:18 | PROVIDERS: Referring Provider Internal Medicine Cardiovascular Disease; Visit Provider Internal Medicine Cardiovascular Disease | DX: R00.2 Palpitations (principal) | CPT/HCPCS: 93225; 93226 ==

== ENCOUNTER 2022-02-27 09:34 | Emergency (ER) | payer MEDICAID, SELFPAY ==
[2022-02-27 09:34] VITALS: BP 123/72; PULSE 86; RESP 16; TEMP 36.4; O2SAT 100; BMI 34.5
--- NOTE | 2022-02-27 10:13 | CT_ITS ---
STUDY: CT BRAIN WITHOUT CONTRAST REASON FOR EXAM: Female, 31 years old. Headache RADIATION DOSAGE (If Supplied By Facility): CTDIvol = ( 44.99 ) mGy, DLP = ( 762.36 ) mGycm TECHNIQUE: Transaxial CT imaging of the brain was performed without administration of intravenous contrast material. Individualized dose optimization techniques were used for this CT. COMPARISON: Comparison is made with prior study dated 08/29/2016. FINDINGS: Normal soft tissue structures. Normal calvarium. Normal size ventricles and extra-axial spaces for the patient''s age. Normal white matter tracts of the cerebral hemispheres. Normal basal ganglia and thalami. Normal brainstem. Normal cerebellum. There is no intracranial hemorrhage. There are no findings of an acute ischemic infarction. Normal visualized paranasal sinuses. CT/Brain/Head without Contrast IMPRESSION: Normal unenhanced CT scan of the brain. Electronically Signed: Omega Chowdhury MD at 10:52 EDT ,
[2022-02-27 10:26] LABS: Mucous, Urine 0 SEEN /hpf (<or=2+); Red Blood Cells-Urine 0 SEEN /hpf (0-5)
[2022-02-27 10:33] LABS: Color, Urine Yellow (Yellow); Glucose, Dipstick Normal (Normal); Ketone-Dipstick Negative (Negative); Leukocyte Esterase-Dipstick 500 /ul (Negative); Nitrite-Dipstick Negative (Negative); Occult Blood-Urine Negative /ul (Negative); Protein-Dipstick Negative (Negative); Urine Bilirubin Dipstick Negative (Negative); Urine Clarity Clear (Clear); Urine Urobilinogen Normal (Normal)
[2022-02-27 10:45] LABS: Bacteria 2+ /hpf (None Seen); Internal QC Validated? YES +Cl - CLEAR BKGD; Pregnancy, Urine Negative Negative; Squamous Epithelial Cells - UA 5-10 SEEN /hpf (5-10); White Blood Cells 0-5 SEEN /hpf (0-5)
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
[2022-02-27] MEDS: Cephalexin 250 MG Capsule 500 MG PO (11:35)
[2022-02-27 11:48] VITALS: BP 119/76; PULSE 79; RESP 14; O2SAT 97
== END 2022-02-27 11:49 | disposition home or self-care (01) ==
PROVIDERS: Emergency Provider Emergency Medicine; Visit Provider Emergency Medicine
DX: N39.0 Urinary tract infection, site not specified (principal); M47.812 Spondylosis without myelopathy or radiculopathy, cervical region; Z87.891 Personal history of nicotine dependence; R20.2 Paresthesia of skin; R51.9 Headache, unspecified; Z86.16 Personal history of COVID-19
CPT/HCPCS: 70450; 81001; 81025; 99283

== ENCOUNTER → 2022-03-13 | Outpatient (CLI) | payer MEDICAID, SELFPAY ==
[2022-03-13 16:37] LABS: Absolute Lymphocyte Count 1.51 X10^3/uL (0.83-4.51); Absolute Neutrophil Count 6.7 X10^3/uL (2.0-7.7); Basophil# 0.06 X10^3/uL; Basophil% 0.6 % (0-1); Eosinophil# 0.27 X10^3/uL; Eosinophils% 2.9 % (0-5); Hemoglobin 12.8 g/dL (12.0-15.0); Lymphocyte # 1.51 X10^3/ul (0.83-4.51); Lymphocyte % 16.2 % (19-41); Mean Corpuscular Hgb 28.1 pg (27.0-32.0); Mean Corpuscular Volume 87.9 fL (81-99); Mean Platelet Vol. 10.4 fl (6.2-12.0); Monocyte# 0.73 X10^3/uL; Monocyte% 7.8 % (0-10); NRBC Flagged by Analyzer 0 % (0-5); Neutrophil % 72.1 % (47-70); Platelet Count 372 K/mm3 (150-450); RBC Distribution Width CV 12.7 % (11.6-14.6); RBC Distribution Width SD 41.1 fl (35.1-43.9); Red Blood Count 4.55 M/mm3 (4.2-5.4); White Blood Count 9.3 K/mm3 (4.4-11.0)
[2022-03-13 17:08] LABS: Vitamin D,25 Hydroxy 16.2 ng/mL
[2022-03-13 17:10] LABS: ALB/GLOB Ratio 0.9 RATIO (0.9-2.4); AST(SGOT) 21 U/L (15-37); Alanine Aminotransfer ALT/SGPT 33 U/L (13-56); Alkaline Phosphatase 86 U/L (45-117); Anion Gap 8 (5-15); BUN 12 mg/dL (7-18); BUN/Creat Ratio 16.6 RATIO (10-20); Calcium,Total 9.1 mg/dL (8.5-10.1); Chloride 107 mmol/L (98-107); Creatinine, Serum 0.72 mg/dL (0.55-1.02); EST Glomerular Filtration Rate 99 mL/min (>60); Est Glom Filt Rate - Afr Amer 120 mL/min (>60); Ferritin 19 ng/mL (8-252); Globulin 4.3 g/dL (2.2-4.2); Glucose 81 mg/dL (74-106); Iron 42 ug/dL (50-170); Iron Binding Capacity,Total 419 ug/dL (250-450); Potassium 3.9 mmol/L (3.5-5.1); Protein, Total 8.3 g/dL (6.4-8.2); Sodium Level 139 mmol/L (136-145); Thyroid Stim Hormone (TSH) 0.77 uIU/mL (0.358-3.74)
== END | disposition home or self-care (01) ==
LOC: BIMLAB 14:48
PROVIDERS: PCP Internal Medicine; Referring Provider Internal Medicine; Visit Provider Internal Medicine
DX: R53.83 Other fatigue (principal); Z86.39 Personal history of other endocrine, nutritional and metabolic disease
CPT/HCPCS: 36415; 80053; 82306; 82728; 83540; 83550; 84443; 85025

== ENCOUNTER → 2022-03-14 | Outpatient (CLI) | payer MEDICAID, SELFPAY ==
[2022-03-21 14:53] LABS: HPV Reflexed? NOT INDICATED
== END | disposition home or self-care (01) ==
LOC: LABSPEC 13:30
PROVIDERS: PCP Internal Medicine; Visit Provider Obstetrics & Gynecology
DX: Z12.4 Encounter for screening for malignant neoplasm of cervix (principal)
CPT/HCPCS: 88175; G0145

== ENCOUNTER → 2022-03-25 | Outpatient (CLI) | payer MEDICAID, SELFPAY ==
[2022-03-28 11:10] LABS: Bacteria 0 SEEN /hpf (None Seen); Mucous, Urine 0 SEEN /hpf (<or=2+); Red Blood Cells-Urine 0 SEEN /hpf (0-5); White Blood Cells 0 SEEN /hpf (0-5)
[2022-03-28 11:37] LABS: Color, Urine Yellow (Yellow); Glucose, Dipstick Normal (Normal); Ketone-Dipstick Negative (Negative); Leukocyte Esterase-Dipstick Negative /ul (Negative); Nitrite-Dipstick Negative (Negative); Occult Blood-Urine Negative /ul (Negative); Protein-Dipstick Negative (Negative); Urine Bilirubin Dipstick Negative (Negative); Urine Clarity Clear (Clear); Urine Urobilinogen Normal (Normal); Urine pH 6.5 (5.0 - 8.0)
[2022-03-28 12:17] LABS: Squamous Epithelial Cells - UA 0-5 SEEN /hpf (5-10)
== END | disposition home or self-care (01) ==
LOC: LABSPEC 03-28 11:04
PROVIDERS: PCP Internal Medicine; Visit Provider Nurse Practitioner Family
DX: R10.2 Pelvic and perineal pain (principal)
CPT/HCPCS: 81001; 87086; 87088

== ENCOUNTER → 2022-05-19 | Outpatient (CLI) | payer MEDICAID, SELFPAY ==
[2022-05-19 15:28] LABS: Bacteria 0 SEEN /hpf (None Seen); Mucous, Urine 0 SEEN /hpf (<or=2+)
[2022-05-19 16:39] LABS: Color, Urine Yellow (Yellow); Glucose, Dipstick Normal (Normal); Ketone-Dipstick Negative (Negative); Leukocyte Esterase-Dipstick 500 /ul (Negative); Nitrite-Dipstick Negative (Negative); Occult Blood-Urine 10 /ul (Negative); Protein-Dipstick 30 mg/dl (Negative); Specific Gravity, Urine 1.025 (1.002-1.030); Urine Bilirubin Dipstick Negative (Negative); Urine Clarity Sl. Cloudy (Clear); Urine Urobilinogen Normal (Normal)
[2022-05-19 16:42] LABS: Internal QC Validated? YES +Cl - CLEAR BKGD; Pregnancy, Urine Negative Negative
[2022-05-19 16:48] LABS: Amorphous Sediment 1+ URATE; Red Blood Cells-Urine 0-5 SEEN /hpf (0-5); Squamous Epithelial Cells - UA 5-10 SEEN /hpf (5-10); White Blood Cells 5-10 SEEN /hpf (0-5)
[2022-05-19 17:42] LABS: HIV - WCH Non-Reactive (Nonreactive); Syphilis Antibodies Non-reactive
[2022-05-22 08:28] LABS: Hepatitis C Antibody Non-Reactive (Nonreactive)
[2022-05-22 16:11] LABS: HSV 1 IgG > 62.20 index (0.00-0.90); HSV 2 IgG 2.21 index (0.00-0.90)
[2022-05-22 21:07] LABS: Chlamydia By Nucleic Acid AMP Negative (Negative)
[2022-05-24 15:53] LABS: Gonococcus By Nucleic Acid AMP Positive (Negative)
== END | disposition home or self-care (01) ==
LOC: BIMLAB 15:27
PROVIDERS: PCP Internal Medicine; Referring Provider Physician Assistant; Visit Provider Physician Assistant
DX: R30.0 Dysuria (principal); Z11.3 Encounter for screening for infections with a predominantly sexual mode of transmission; N89.8 Other specified noninflammatory disorders of vagina; Z20.2 Contact with and (suspected) exposure to infections with a predominantly sexual mode of transmission
CPT/HCPCS: 36415; 81001; 81025; 86695; 86696; 86703; 86780; 86803; 87070; 87086; 87088; 87205; 87491; 87591

== ENCOUNTER → 2022-06-08 | Outpatient (CLI) | payer MEDICAID, SELFPAY ==
[2022-06-08 13:02] LABS: Mucous, Urine 0 SEEN /hpf (<or=2+); Red Blood Cells-Urine 0 SEEN /hpf (0-5); Squamous Epithelial Cells - UA 0 SEEN /hpf (5-10); White Blood Cells 0 SEEN /hpf (0-5)
[2022-06-08 15:04] LABS: Color, Urine Yellow (Yellow); Glucose, Dipstick Normal (Normal); Ketone-Dipstick Negative (Negative); Leukocyte Esterase-Dipstick Negative /ul (Negative); Nitrite-Dipstick Negative (Negative); Occult Blood-Urine Negative /ul (Negative); Protein-Dipstick Negative (Negative); Specific Gravity, Urine 1.015 (1.002-1.030); Urine Bilirubin Dipstick Negative (Negative); Urine Clarity Clear (Clear); Urine Urobilinogen Normal (Normal)
[2022-06-08 15:16] LABS: Bacteria RARE /hpf (None Seen); Transitional Epithelial - Ur 5-10 SEEN /hpf (0-5)
[2022-06-08 15:18] LABS: Vitamin D,25 Hydroxy 21.9 ng/mL
[2022-06-08 15:25] LABS: Ferritin 15 ng/mL (8-252); Iron 26 ug/dL (50-170); Iron Binding Capacity,Total 374 ug/dL (250-450)
[2022-06-12 02:07] LABS: Chlamydia By Nucleic Acid AMP Negative (Negative)
[2022-06-12 17:07] LABS: Gonococcus By Nucleic Acid AMP Negative (Negative)
== END | disposition home or self-care (01) ==
LOC: BIMLAB 13:00
PROVIDERS: PCP Internal Medicine; Referring Provider Internal Medicine; Visit Provider Internal Medicine
DX: A54.9 Gonococcal infection, unspecified (principal); R10.30 Lower abdominal pain, unspecified; E61.1 Iron deficiency; E55.9 Vitamin D deficiency, unspecified
CPT/HCPCS: 36415; 81001; 82306; 82728; 83540; 83550; 87086; 87088; 87491; 87591

== ENCOUNTER → 2023-04-18 | Outpatient (CLI) | payer MEDICAID, SELFPAY ==
[2023-04-18 09:44] LABS: Mucous, Urine 0 SEEN /hpf (<or=2+)
[2023-04-18 12:30] LABS: Absolute Lymphocyte Count 2.19 X10^3/uL (0.83-4.51); Absolute Neutrophil Count 5.1 X10^3/uL (2.0-7.7); Basophil# 0.07 X10^3/uL; Basophil% 0.8 % (0-1); Eosinophil# 0.16 X10^3/uL; Eosinophils% 1.9 % (0-5); Hematocrit 40.5 % (37-47); Hemoglobin 12.8 g/dL (12.0-15.0); Lymphocyte # 2.19 X10^3/ul (0.83-4.51); Lymphocyte % 26.4 % (19-41); Mean Corp Hgb Conc 31.6 g/dL (32-36); Mean Corpuscular Hgb 29.5 pg (27.0-32.0); Mean Corpuscular Volume 93.3 fL (81-99); Mean Platelet Vol. 10.6 fl (6.2-12.0); Monocyte# 0.77 X10^3/uL; Monocyte% 9.3 % (0-10); NRBC Flagged by Analyzer 0 % (0-5); Neutrophil # 5.06 X10^3/uL (2.7-7.7); Neutrophil % 61.1 % (47-70); Platelet Count 327 K/mm3 (150-450); RBC Distribution Width CV 13.2 % (11.6-14.6); RBC Distribution Width SD 45.1 fl (35.1-43.9); Red Blood Count 4.34 M/mm3 (4.2-5.4); White Blood Count 8.3 K/mm3 (4.4-11.0)
[2023-04-18 12:31] LABS: Color, Urine Yellow (Yellow); Glucose, Dipstick Normal (Normal); Ketone-Dipstick 5 mg/dl (Negative); Leukocyte Esterase-Dipstick 25 /ul (Negative); Nitrite-Dipstick Negative (Negative); Occult Blood-Urine 250 /ul (Negative); Protein-Dipstick 30 mg/dl (Negative); Specific Gravity, Urine 1.025 (1.002-1.030); Urine Bilirubin Dipstick Negative (Negative); Urine Clarity Sl. Cloudy (Clear); Urine Urobilinogen 1 mg/dl (Normal)
[2023-04-18 12:45] LABS: Bacteria 1+ /hpf (None Seen); Red Blood Cells-Urine 25-50 SEEN /hpf (0-5); Squamous Epithelial Cells - UA 0-5 SEEN /hpf (5-10); White Blood Cells 0-5 SEEN /hpf (0-5)
[2023-04-18 12:50] LABS: Internal QC Validated? YES +Cl - CLEAR BKGD; Pregnancy, Urine Negative Negative
[2023-04-18 13:26] LABS: ALB/GLOB Ratio 0.9 RATIO (0.9-2.4); AST(SGOT) 20 U/L (15-37); Alanine Aminotransfer ALT/SGPT 22 U/L (13-56); Albumin, Serum 3.6 g/dL (3.2-5.0); Alkaline Phosphatase 76 U/L (45-117); Anion Gap 5 (5-15); BUN 12 mg/dL (7-18); BUN/Creat Ratio 17.3 RATIO (10-20); Calcium,Total 8.7 mg/dL (8.5-10.1); Chloride 108 mmol/L (98-107); Creatinine, Serum 0.69 mg/dL (0.55-1.02); EST Glomerular Filtration Rate 103 mL/min (>60); Est Glom Filt Rate - Afr Amer 125 mL/min (>60); Ferritin 27 ng/mL (8-252); Glucose 87 mg/dL (74-106); Iron 38 ug/dL (50-170); Iron Binding Capacity,Total 418 ug/dL (250-450); PERCENT IRON SATURATION 9.1 % (15.0-55.0); Potassium 3.9 mmol/L (3.5-5.1); Protein, Total 7.6 g/dL (6.4-8.2); Sodium Level 138 mmol/L (136-145)
[2023-04-18 16:36] LABS: Probe Check PASS; Sample Adequacy Control PASS; Specimen Processing Control PASS; Trichomonas Vag DNA by PCR Negative (Negative)
== END | disposition home or self-care (01) ==
LOC: BIMLAB 09:43
PROVIDERS: PCP Internal Medicine; Referring Provider Internal Medicine; Visit Provider Internal Medicine
DX: R30.0 Dysuria (principal); E55.9 Vitamin D deficiency, unspecified; N89.8 Other specified noninflammatory disorders of vagina; E61.1 Iron deficiency
CPT/HCPCS: 36415; 80053; 81001; 81025; 82306; 82728; 83540; 83550; 85025; 87077; 87086; 87088; 87186; 87491; 87591; 87661

== ENCOUNTER → 2023-08-03 | Outpatient (CLI) | payer MEDICAID, SELFPAY ==
--- NOTE | 2023-08-03 14:03 | ECHOD_ITS ---
Reason For Study: Chest Pain Procedure This was a 2D Doppler, Color Flow transthoracic echocardiogram. Exam performed in department. Left Ventricle Normal LV size. Left ventricular systolic function is normal. The estimated ejection fraction is 65 %. No regional wall motion abnormalities noted. Right Ventricle Normal RV size. Normal systolic function. Atria Normal left atrium. Normal right atrium. Mitral Valve Normal mitral valve. Tricuspid Valve Normal tricuspid valve. Mild tricuspid valve insufficiency. Pulmonary artery systolic pressure is 28 mmHg. Aortic Valve Normal aortic valve. Pulmonic Valve Normal pulmonic valve. Great Vessels Normal aortic root. The pulmonary artery is normal size. Normal inferior vena cava. Pericardium/Pleural No pericardial effusion. MMode/2D Measurements & Calculations LVIDd: 4.1 cm IVSd: 0.93 cm Ao root diam: 2.6 cm LVIDs: 2.7 cm LVPWd: 0.74 cm RVDd: 3.4 cm FS: 34.5 % LAV(MOD-bp): 19.5 ml LVAd ap4: 22.8 cm2 SV(MOD-sp4): 37.6 ml LAV(MOD-bp) Indexed: 10.7 ml/m2 LVLd ap4: 7.8 cm LAV(MOD-sp2): 22.3 ml EDV(MOD-sp4): 55.5 ml LAV(MOD-sp4): 16.8 ml EDV(sp4-el): 56.5 ml LVAs ap4: 11.5 cm2 LVLs ap4: 6.2 cm ESV(MOD-sp4): 17.9 ml ESV(sp4-el): 18.2 ml EF(MOD-sp4): 67.7 % EF(sp4-el): 67.8 % SV(sp4-el): 38.3 ml LA A4 area: 9.7 cm2 LA dimension(2D): 2.9 cm RA A4 area: 9.0 cm2 TAPSE: 2.5 cm Time Measurements MV dec time: 0.24 sec Doppler Measurements & Calculations MV E max luan: 88.5 cm/sec Lat Peak E' Luan: 21.9 cm/sec Med Peak E' Luan: 12.6 cm/sec MV A max luan: 72.0 cm/sec E/E' lat: 4.0 E/E' med: 7.0 MV E/A: 1.2 Ao V2 max: 127.4 cm/sec LV V1 max: 106.3 cm/sec MV dec slope: 374.4 cm/sec2 Ao max P.5 mmHg LV V1 max P.5 mmHg Ao V2 mean: 89.6 cm/sec Ao mean P.5 mmHg Ao V2 VTI: 23.9 cm PA V2 max: 102.6 cm/sec TR max luan: 245.5 cm/sec TR max P.1 mmHg ECHO/Echo Complete Interpretation Summary Normal LV size. Left ventricular systolic function is normal. The estimated ejection fraction is 65 %. Pulmonary artery systolic pressure is 28 mmHg. Ordering Physician: Cooper Schaeffer Referring Physician: Cooper Schaeffer Performed By: Rona Schaeffer, MARIANO, RVT
== END | disposition home or self-care (01) ==
LOC: CVS 14:02
PROVIDERS: Referring Provider Nurse Practitioner Family; Visit Provider Nurse Practitioner Family
DX: R07.9 Chest pain, unspecified (principal); R00.2 Palpitations
CPT/HCPCS: 93306

== ENCOUNTER → 2023-08-28 | Outpatient (CLI) | payer MEDICAID, SELFPAY ==
--- NOTE | 2023-08-28 17:35 | STRESSREP ---
Stress Test Report Exercise stress test. 33-year-old male with a history of chest pain Stress protocol: Resting EKG demonstrates normal sinus rhythm rate of 95 bpm resting blood pressure is 118/84 mmHg. The patient exercised according to the regular John protocol for a total duration of 9 minutes attaining a maximum heart rate of 181 bpm which was 97% of maximum predicted heart rate; the maximum workload was 10.1 metabolic equivalents. At rest there were no ST or T wave changes noted to suggest ischemia and at peak exercise upsloping ST changes only were noted which did not meet the criteria for ischemia. No clinical angina was noted the test was terminated due to the target heart rate being achieved/fatigue. The peak blood pressure was 148/80 mmHg. Rate-pressure product was 25,700. Conclusion: Normal exercise stress test with no evidence of ischemia at a high workload.
== END | disposition home or self-care (01) ==
LOC: CVS 12:03
PROVIDERS: Referring Provider Nurse Practitioner Family; Visit Provider Nurse Practitioner Family
DX: R07.9 Chest pain, unspecified (principal)
CPT/HCPCS: 93017

== ENCOUNTER → 2024-11-17 | Outpatient (CLI) | payer MEDICAID, SELFPAY ==
--- NOTE | 2024-11-17 14:09 | STE_ITS ---
Reason For Study: Chest Pain Stress Results Protocol: John Protocol Maximum Predicted HR: 185 bpm Target HR: 157 bpm % Maximum Predicted HR: 89 % DurationHeart Rate Stage (mm:ss) (bpm) BP Comment Baseline 78 100/60No Chest Pain John Protocol Stage I 3:00 113 114/62No Chest Pain John Protocol Stage II 3:00 139 130/60No Chest Pain John Protocol Stage III 3:00 164 142/60No Chest Pain; Mild Dyspnea Recovery 87 98/58 Stress Duration: 9:00 mm:ss Maximum Stress HR: 164 bpm METS: 10 Baseline Echocardiogram Findings Stress Echo Wall motion Data Resting WM Intermediate WM Stress WM ECHO/Stress Test Echo w/o Contrast Interpretation Summary Stress echo. 34-year-old lady with a history of chest pain. Resting EKG demonstrates sinus rhythm with a rate of 82 bpm normal intervals ar e noted resting blood pressure is 100/60 mmHg. The patient exercised according to the regular John p rotocol for total duration of 9 minutes. Patient completed stage III of the John protocol. The m aximum heart rate attained was 166 bpm which was 89% of max impacted heart rate the maximum workl oad was 10.4 metabolic equivalents. At rest there were no ST or T wave changes noted suggest ischemia and at peak exercise no ST or T wave changes were noted suggest ischemia. No clinical angin a was noted the test was terminated due to target heart rate being achieved. The peak blood pressure was 144/70 which was a normal blood pressure response to exercise. Stress echocardiogram. The resting echocardiogram demonstrated overall preserve d left ventricular systolic size estimated ejection fraction of 60% with no wall motion abnormalit ies noted. At peak exercise there was thickening of all alicea with reduction in low ventricular ca vity size no ischemia was noted. No new wall motion abnormalities were present. Conclusion: Exercise stress echocardiogram with no wall motion abnormalities to suggest isc hemia at a high workload. Excellent functional capacity. Ordering Physician: Cooper Schaeffer Referring Physician: Cooper Schaeffer Performed By: Ana Rosa Loya RCS
== END | disposition home or self-care (01) ==
LOC: CVS 14:08
PROVIDERS: Referring Provider Nurse Practitioner Family; Visit Provider Nurse Practitioner Family
DX: R07.9 Chest pain, unspecified (principal); R06.09 Other forms of dyspnea; R42 Dizziness and giddiness
CPT/HCPCS: 93017; 93350